=== PATIENT | male | born 1965 | race Caucasian/White ===

== ENCOUNTER → 2016-07-12 | Outpatient (CLI) | payer BC ==
[2016-02-22 13:50] VITALS: BP 123/83
[~2016-07-12] MED LIST: HYDR-2666 PO
--- NOTE | 2016-07-12 15:37 | KCIC ---
PROCEDURE Lumbar spine radiographs HISTORY L1 compression fracture, fall on 07/11/2016 COMPARISON None available FINDINGS Two views of the lumbar spine are submitted. There is superior L1 compression deformity without significant osseous retropulsion. There is mild reverse S-shaped scoliosis of the thoracolumbar spine. Vertebral body AP alignment is adequate. There is facet degenerative change greater inferiorly of the lumbar spine. There has been cholecystectomy. IMPRESSION 1. There is superior compression deformity of what is considered L1 of uncertain chronicity. Correlation with MRI could be beneficial to assess for marrow edema. 2. There is mild reverse S-shaped scoliosis of the thoracolumbar spine. Electronically signed by: Juvencio Block MD (Jul 12, 2016 15:35:29)
== END | disposition home or self-care (01) ==
LOC: KCIC 14:42
PROVIDERS: ATTEND Neurological Surgery
DX: S32.000A Wedge compression fracture of unspecified lumbar vertebra, initial encounter for closed fracture (principal)
CPT/HCPCS: 72100

== ENCOUNTER → 2016-07-12 | Outpatient (CLI) | payer BC ==
[2016-02-22 13:50] VITALS: BP 123/83
--- NOTE | 2016-07-12 15:35 | KCIC ---
PROCEDURE MR of the left shoulder HISTORY Left shoulder pain. Injury June 14. Two previous surgeries. COMPARISON None TECHNIQUE Standard multiplanar sequences. 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 No evidence of a rotator cuff tear. No significant subdeltoid bursal effusion. Mild rotator cuff muscle atrophy. No significant joint effusion. There are apparent suture anchors at the anterosuperior glenoid. No evidence of labral detachment or tear. No advanced osteoarthritis. Biceps tendon poorly seen, particularly proximally. No bone lesion or acute fracture. No evidence of acute soft tissue injury. IMPRESSION 1. Rotator cuff tendinosis without evidence of a tear. 2. Postsurgical changes at the anterosuperior glenoid. No evidence of labral detachment. 3. Poorly visualized biceps tendon. Electronically signed by: Rome Washington MD (Jul 12, 2016 15:34:51)
== END | disposition home or self-care (01) ==
LOC: KCIC MRI 14:39
PROVIDERS: ATTEND Family Medicine
DX: M75.102 Unspecified rotator cuff tear or rupture of left shoulder, not specified as traumatic (principal)
CPT/HCPCS: 73221

== ENCOUNTER 2016-08-11 14:47 | Inpatient (IN) | payer BC ==
[~2016-08-11] VITALS: Ht 177.8 cm; Wt 94.0 kg
--- NOTE | 2016-08-11 15:02 | PHYS DOC ---
Past Medical History Past Medical History: Diabetes-Type II, Other Additional Past Medical Histor: Hx of head injury 2012, back pain, frequent falls Past Surgical History: Cholecystectomy Additional Past Surgical Histo: ACL, Rotator cuff, back Alcohol Use: None Drug Use: None Adult General Chief Complaint Chief Complaint: CHEST PAIN HPI HPI Patient is a 50 year old male presenting to the emergency department for evaluation of chest pain that started approximately 45 minutes prior to arrival while at rest. He said that he had no prior exertion. He says the pain is heavy and pressure on the left chest and radiates toward the right chest and left arm and associated with shortness of breath but no nausea vomiting or diaphoresis. He says that it feels quite heavy on his chest and he has not had symptoms like this before in the past. Patient denies any diaphoresis nausea or vomiting. Patient says that he has had a heart catheterization before in the past but that was probably 20 years ago. Patient looks uncomfortable but is in no obvious distress. Review of Systems Review of Systems Constitutional: Denies fever or chills [] Eyes: Denies change in visual acuity, redness, or eye pain [] HENT: Denies nasal congestion or sore throat [] Respiratory: Denies cough. + shortness of breath [] Cardiovascular: + CP GI: Denies abdominal pain, nausea, vomiting, bloody stools or diarrhea [] : Denies dysuria or hematuria [] Musculoskeletal: Denies back pain or joint pain [] Integument: Denies rash or skin lesions [] Neurologic: Denies headache, focal weakness or sensory changes [] Current Medications Current Medications Current Medications Medications (Trade) Dose Ordered Sig/[facility] Start Time Stop Time Status Last Admin Dose Admin Albuterol/ Ipratropium 3 ml 3 ml 1X ONCE 08/11/16 15:30 08/11/16 15:32 DC 08/11/16 15:48 3 ML Aspirin (Amy Aspirin) 325 mg STK-MED ONCE 08/11/16 15:13 08/11/16 15:14 DC Aspirin (Ecotrin) 325 mg 1X ONCE 08/11/16 15:15 08/11/16 15:16 DC 08/11/16 15:26 325 MG Enoxaparin Sodium (Lovenox 100mg Syringe) 95 mg 1X ONCE 08/11/16 15:30 08/11/16 15:31 DC 08/11/16 15:35 95 MG Insulin Human Regular (Novolin R Vial) 10 unit 1X ONCE 08/11/16 16:00 08/11/16 16:01 Morphine Sulfate 5 mg 1X ONCE 08/11/16 15:15 08/11/16 15:16 DC 08/11/16 15:35 5 MG Nitroglycerin (Nitrostat) 0.4 mg PRN Q5MIN PRN 08/11/16 15:15 08/11/16 15:30 0.4 MG Ondansetron HCl (Zofran) 4 mg 1X ONCE 08/11/16 15:15 08/11/16 15:16 DC 08/11/16 15:17 4 MG Sodium Chloride (Iv Sodium Chloride 0.9% 1000ml Bag) 1,000 ml @ 0 mls/hr 1X ONCE 08/11/16 16:00 08/11/16 16:01 Allergies Allergies Allergies Coded Allergies Type Severity Reaction Last Updated Verified Penicillins Allergy Intermediate 12/01/15 Yes doxycycline Allergy Intermediate Rash 08/11/16 Yes Physical Exam Physical Exam Constitutional: Well developed, well nourished, no acute distress, non-toxic appearance. [] HENT: Normocephalic, atraumatic, bilateral external ears normal, oropharynx moist, no oral exudates, nose normal. [] Eyes: PERRLA, EOMI, conjunctiva normal, no discharge. [] Neck: Normal range of motion, no tenderness, supple, no stridor. [] Cardiovascular:Heart rate regular rhythm, no murmur [] Lungs & Thorax: Bilateral breath sounds clear to auscultation [] Abdomen: Bowel sounds normal, soft, no tenderness, no masses, no pulsatile masses. [] Skin: Warm, dry, no erythema, no rash. [] Back: No tenderness, no CVA tenderness. [] Extremities: No tenderness, no cyanosis, no clubbing, ROM intact, no edema. [] Neurologic: Alert and oriented X 3, normal motor function, normal sensory function, no focal deficits noted. [] Current Patient Data Vital Signs Vital Signs Date Time Temp Pulse Resp B/P Pulse Ox O2 Delivery O2 Flow Rate FiO2 08/11/16 15:48 Nasal Cannula 3.0 08/11/16 15:35 20 91 08/11/16 15:30 104 119/73 08/11/16 14:53 98.4 98.4 Lab Values Laboratory Tests Test 08/11/16 14:50 White Blood Count 7.3x10^3/uL (4.0-11.0) Red Blood Count 5.59x10^6/uL (4.30-5.70) Hemoglobin 15.7g/dL (13.0-17.5) Hematocrit 46.9% (39.0-53.0) Mean Corpuscular Volume 84fL (79-100) Mean Corpuscular Hemoglobin 28pg (25-35) Mean Corpuscular Hemoglobin Concent 33g/dL (31-37) Red Cell Distribution Width 14.0% (11.5-14.5) Platelet Count 181x10^3/uL (140-400) Neutrophils (%) (Auto) 60% (31-73) Lymphocytes (%) (Auto) 29% (24-48) Monocytes (%) (Auto) 7% (0-9) Eosinophils (%) (Auto) 3% (0-3) Basophils (%) (Auto) 1% (0-3) Neutrophils # (Auto) 4.4x10^3uL (1.8-7.7) Lymphocytes # (Auto) 2.1x10^3/uL (1.0-4.8) Monocytes # (Auto) 0.5x10^3/uL (0.0-1.1) Eosinophils # (Auto) 0.2x10^3/uL (0.0-0.7) Basophils # (Auto) 0.0x10^3/uL (0.0-0.2) Prothrombin Time 11.9SEC (11.7-14.0) Prothrombin Time INR 0.9 (0.8-1.1) PTT 26SEC (24-38) D-Dimer (Leticia) 0.29ug/mlFEU (0.00-0.50) Sodium Level 135mmol/L (136-145) L Potassium Level 4.0mmol/L (3.5-5.1) Chloride Level 101mmol/L (98-107) Carbon Dioxide Level 26mmol/L (21-32) Anion Gap 8 (6-14) Blood Urea Nitrogen 21mg/dL (8-26) Creatinine 1.2mg/dL (0.7-1.3) Estimated GFR (Cockcroft-Gault) 64.4 BUN/Creatinine Ratio 18 (6-20) Glucose Level 451mg/dL (70-99) H Calcium Level 9.3mg/dL (8.5-10.1) Total Bilirubin 0.4mg/dL (0.2-1.0) Aspartate Amino Transferase (AST) 14U/L (15-37) L Alanine Aminotransferase (ALT) 29U/L (16-63) Alkaline Phosphatase 93U/L (46-116) Troponin I Quantitative < 0.017ng/mL (0.000-0.055) HM-Hwb-L-Type Natriuretic Peptide 11pg/mL (0-124) Total Protein 7.4g/dL (6.4-8.2) Albumin 3.5g/dL (3.4-5.0) Albumin/Globulin Ratio 0.9 (1.0-1.7) L Lipase 254U/L (73-393) Ethyl Alcohol Level < 10mg/dL (0-10) Laboratory Tests 08/11/16 14:50 Laboratory Tests 08/11/16 14:50 EKG EKG Normal sinus rhythm at 97 beats per minutes with normal axis no deviation no obvious ST elevation or depression with flattened T waves in leads 3 and aVF and V4 through V6. Radiology/Procedures Radiology/Procedures Portable AP upright view CXR: Clinical indications: Chest pain today. Comparison: November 19, 2010 Findings: Old granulomatous disease is seen. No acute lung infiltrate or pleural effusion or pulmonary edema or lung mass or pneumothorax is seen. The heart size is enlarged but stable. The pulmonary vasculature, mediastinum and both elysia are unremarkable. T Impression: No acute radiographic abnormality is seen. DICTATED and SIGNED BY: NATHALY BEJARANO MD DATE: 08/11/16 1524 Course & Med Decision Making Course & Med Decision Making Patient with tachycardia and hypoxia at 90%. Patient given aspirin breathing treatment and oxygen subcutaneous Lovenox shortly after arrival. Patient's d- dimer is negative and he has a moderate wells score so workup for PE will stop there for now. EKG shows nonspecific changes and his troponin is negative. Pain did not improve much with nitroglycerin however morphine almost took his pain away completely. Patient feels that his breathing improved somewhat with the DuoNeb. Given patient has abnormal vital signs chest pain and no recent cardiac risk stratification he'll be admitted to the hospital for further observation and treatment. Patient accepted by Dr. Morales. Of note patient was requesting to have Dr. Seymour as the consulting ammonia technician and did not want Dr. Patel consulted. Dragon Disclaimer Dragon Disclaimer This electronic medical record was generated, in whole or in part, using a voice recognition dictation system. Departure Departure Impression: Primary Impression: Chest pain at rest Additional Impressions: Tachycardia Hypoxia Disposition: ADMITTED INPATIENT Admitting Physician: Shantanu Morales Condition: STABLE Referrals: MIRANDA MCGREGOR (PCP) Problem Qualifiers PAULY DIAZ DO Aug 11, 2016 15:02
[2016-08-11] MEDS ORDERED: ASPIRIN 325 MG TABLET ONE (15:13)
[2016-08-11] MEDS ORDERED: MORPHINE SULFATE 10 MG/ML VIAL. IV ONE (15:15)
[2016-08-11] MEDS ORDERED: ASPIRIN ENTERIC COATED 325 MG TABLET.DR. PO ONE (15:15)
[2016-08-11] MEDS ORDERED: ONDANSETRON PF 4 MG/2 ML VIAL. IV ONE (15:15)
[2016-08-11] MEDS: NITROGLYCERIN SUBLINGUAL 0.4 MG BOTTLE OF 25. SL PRN ×3 (15:16→15:30)
[2016-08-11 15:17] LABS: BASO % 1 % (0-3); EOS % 3 % (0-3); HEMATOCRIT 46.9 % (39.0-53.0); HEMOGLOBIN 15.7 g/dL (13.0-17.5); LYMPH # 2.1 x10^3/uL (1.0-4.8); LYMPH % 29 % (24-48); MEAN CORPUSCULAR HEMOGLOBIN 28 pg (25-35); MEAN CORPUSCULAR HGB CONC 33 g/dL (31-37); MEAN CORPUSCULAR VOLUME 84 fL (79-100); MONO % 7 % (0-9); NEUT % 60 % (31-73); PLATELET COUNT 181 x10^3/uL (140-400); RED BLOOD COUNT 5.59 x10^6/uL (4.30-5.70); WHITE BLOOD COUNT 7.3 x10^3/uL (4.0-11.0)
[2016-08-11 15:27] LABS: INR 0.9 (0.8-1.1); PROTHROMBIN TIME PATIENT 11.9 SEC (11.7-14.0)
--- NOTE | 2016-08-11 15:29 | RAD ---
Portable AP upright view CXR: Clinical indications: Chest pain today. Comparison: November 19, 2010 Findings: Old granulomatous disease is seen. No acute lung infiltrate or pleural effusion or pulmonary edema or lung mass or pneumothorax is seen. The heart size is enlarged but stable. The pulmonary vasculature, mediastinum and both elysia are unremarkable. T Impression: No acute radiographic abnormality is seen.
[2016-08-11] MEDS ORDERED: IPRATRPIUM/ALBUTEROL 0.5/2.5MG 3 ML NEBU. NEB ONE (15:30)
[2016-08-11 15:31] LABS: CALCIUM 9.3 mg/dL (8.5-10.1); CREATININE 1.2 mg/dL (0.7-1.3); GFR 64.4
[2016-08-11 15:39] LABS: ALBUMIN 3.5 g/dL (3.4-5.0); ALBUMIN/GLOBULIN RATIO 0.9 (1.0-1.7); TOTAL BILIRUBIN 0.4 mg/dL (0.2-1.0); TOTAL PROTEIN 7.4 g/dL (6.4-8.2)
[2016-08-11 15:58] LABS: BARBITURATES NEG (NEG); BENZODIAZEPINES NEG (NEG); CANNABINOIDS NEG (NEG); COCAINE NEG (NEG); METHADONE NEG (NEG); OPIATES NEG (NEG); PHENCYCLIDINE NEG (NEG)
[2016-08-11] MEDS ORDERED: IV NORMAL SALINE 1000ML BAG 1,000 ML IV ONE ×2 (16:00→16:15)
[2016-08-11] MEDS ORDERED: INSULIN REGULAR 100 UNIT/ML 10ML VIAL. IV ONE (16:00)
[2016-08-11] MEDS ORDERED: ONDANSETRON PF 4 MG/2 ML VIAL. IV PRN ×2 (16:15→17:45)
[2016-08-11] MEDS: fentaNYL PF VIAL 100 MCG/2 ML VIAL IV PRN ×3 (16:23→22:48)
[2016-08-11 16:29] LABS: BILIRUBIN,URINE NEGATIVE (NEG); GLUCOSE,URINE >=1000 mg/dL (NEG); NITRITE,URINE NEGATIVE (NEG); PH,URINE 5.5; PROTEIN,URINE NEGATIVE (NEG-TRACE); UROBILINOGEN,URINE 0.2 mg/dL (0.2 mg/dL)
--- NOTE | 2016-08-11 16:36 | EKG ---
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
--- NOTE | 2016-08-11 16:39 | ACF ---
Admission Forms Criteria CHEST PAIN Clinical Indications for Admission to Inpatient Care (Place 'X' for any and all applicable criteria): Admission is indicated for chest pain and ANY ONE of the following(1)(2)(3)(4)(5 ): [ ]I. Angina with acute coronary syndrome (Also use Myocardial Infarction or Angina guideline) [ ]II. Hemodynamic instability [X]III. Angina needing acute intervention as indicated by ALL of the following( 11)(12): [X]a) Unstable angina is present as indicated by angina that is ANY ONE of the following: [X]i) New onset [ ]ii) Nocturnal [ ]iii) Prolonged at rest [ ]iv) Progressive [X]b) Angina warrants acute intervention as indicated by ANY ONE of the following: [ ]i) Recurrent angina (e.g, not responding as previously to treatment) [X]ii) Angina at rest or with low-level activities despite initial medical therapy [ ]iii) New or presumably new ST-segment depression on ECG [ ]iv) Signs or symptoms of heart failure (eg, dyspnea, pulmonary edema) [ ]v) New or worsening mitral regurgitation [ ]vi) Hemodynamic instability [ ]vii) Dangerous arrhythmia (eg, sustained ventricular tachycardia) [ ]viii) History of percutaneous coronary intervention within 6 months [ ]ix) History of coronary artery bypass graft surgery [ ]x) JOSE risk score of 2 or greater[A] [X]xi) History of Diabetes(14) [ ]xii) High-risk cardiac ischemia findings on noninvasive testing (e.g, echocardiogram, treadmill testing, nuclear scan) [ ]xiii) Chronic renal insufficiency (ie, estimated GFR less than 60 mL/min/1.732m) [ ]xiv) Left ventricular ejection fraction less than 40% [ ]IV. Evidence of NM (eg, cardiac biomarkers positive, ST-segment elevation on ECG) also use Myocardial Infarction Criteria Form. [ ]V. Pulmonary edema [ ]. Respiratory distress [ ]VII. Chest pain indicative of serious diagnosis other than coronary artery disease (eg, aortic dissection) [ ]VIII. Contraindications and/or Inappropriate clinical situations for Observational Care in patients with Chest Pain, when ANY ONE of the following is required: [ ]a) Patient with risk factor for pulmonary embolism, acute coronary syndrome and myocardial infarction (18) [ ]b) Patient with Pulmonary embolism require an average LOS of 4.3 days, therefore emergency department observation management is inappropriate 18,23 [ ]c) Painful condition/s in the elderly, have the highest rate of recidivism after emergency department observation management (10.8%) 20,21,22 [ ]d) Elevated cardiac biomarker requires intensive and exhaustive care (19) [ ]IX. General contraindications and/or Inappropriate clinical situations for Observational Care in patients with Chest Pain, when ANY ONE of the following is required: [ ]a) Prediction of prolongation of LOS based on ANY ONE of the following may be considered as a contraindication for observational care 2, 3, 4, 5, 6, 7, 8, 9, 10, 11 [ ]i) Age > 65 yrs. [ ]ii) Patient arriving by ambulance [ ]iii) Patient with high acuity [ ]iv) Patient requiring vital sign monitoring [ ]v) Patient on IV medication [ ]b) Systolic blood pressures 180mmHg 3,12 [ ]c) Patient with altered mental status including delirium and other alteration of consciousness, (3) [ ]d) Patient whose discharge disposition will be to a shelter home or rehabilitation home should not be managed in Emergency Department Observation Unit. CMS rule requires 3 days hospital stay before such placement. 3,13 [ ]e) Patient with failure to thrive due to broad array of etiologies 3,16,17 [ ]f) Inability to ambulate 3,14 Extended stay beyond goal length of stay may be needed for (1)(28): [ ]a) Specific condition diagnosed after evaluation (eg, pulmonary embolism, aortic dissection) [ ]b) Unstable angina [ ]c) Continued suspicion of acute coronary syndrome with inability to complete needed cardiac evaluation (eg, patient clinically unable to undergo stress testing) [ ]d) Myocardial infarction (Contents from ANGINA and CHEST PAIN clinical indications for admission to inpatient care have been integrated in this form) The original [employer] content created by [employer] has been revised. The portions of the content which have been revised are identified through the use of italic text or in bold, and [employer] has neither reviewed nor approved the modified material. All other unmodified content is copyright [employer]. Please see references footnoted in the original [facility] Admission Criteria Met?: Yes DONALD LAI Aug 11, 2016 16:39
[2016-08-11] MEDS ORDERED: IOHEXOL 300 MG/ML 75 ML VIAL IV ONE (16:45)
[2016-08-11 16:50] LABS: BACTERIA,URINE 0 /HPF (0-FEW); RBC,URINE 0 /HPF (0-2); SQUAMOUS EPITHELIAL CELL,UR OCC /LPF; WBC,URINE 0 /HPF (0-4)
--- NOTE | 2016-08-11 17:21 | RAD ---
CTA of the chest with and without contrast Clinical indications: Shortness of air and tachycardia. Hypoxia. Technique: Noncontrast axial localizer was performed. After IV infusion of 75 cc of Omnipaque 300, helical CT scanning of the chest was performed using the CT pulmonary embolism protocol. A coronal MIP reconstruction was generated. PQRS Compliance Statement: One or more of the following individualized dose reduction techniques were utilized for this examination: 1. Automated exposure control 2. Adjustment of the mA and/or kV according to patient size 3. Use of iterative reconstruction technique Comparison: None available. Findings: There are some small pulmonary emboli present within tertiary branches of the right upper lobe and posterior right lower lobe. No pulmonary embolism is evident on the left side. No pulmonary embolism is evident within the main pulmonary trunk or the left main or right main pulmonary arteries. No thoracic aortic dissection or focal aneurysmal dilatation is seen. A large amount of pericardial fat is seen around the heart. Excluding the pericardial fat, the actual heart size is within normal limits. No pericardial effusion is seen. No enlarged thoracic lymphadenopathy is seen. No pleural effusion is seen. There is some atelectasis within both lower lobes. No lung consolidation with air bronchograms is seen. No lung mass is evident. No pneumothorax is seen. The proximal bronchial tree is patent. No adrenal mass is seen. No osteolytic process is seen. IMPRESSION: Small pulmonary emboli are present within tertiary branches of the right lung field. Bilateral lower lobe atelectasis. Note-this critical result was called to the patient's floor nurse, Abida at 5:17 PM on August 11, 2016.
[2016-08-11 17:22] VITALS: BP 116/73
--- NOTE | 2016-08-11 17:43 | PDOC1 ---
History and Physical Current Problem List Problem List Problems Medical Problems: (1) Chest pain at rest Status: Acute (2) Hypoxia Status: Acute (3) Tachycardia Status: Acute Current Medications Current Medications Current Medications Medications (Trade) Dose Ordered Sig/Gadiel Start Time Stop Time Status Last Admin Dose Admin Albuterol/ Ipratropium (Duoneb) 3 ml 1X ONCE 08/11/16 15:30 08/11/16 15:32 DC 08/11/16 15:48 3 ML Aspirin (Amy Aspirin) 325 mg STK-MED ONCE 08/11/16 15:13 08/11/16 15:14 DC Aspirin (Ecotrin) 325 mg 1X ONCE 08/11/16 15:15 08/11/16 15:16 DC 08/11/16 15:26 325 MG Enoxaparin Sodium (Lovenox 100mg Syringe) 100 mg Q12HR 08/12/16 09:00 Enoxaparin Sodium (Lovenox 30mg Syringe) 10 mg 1X ONCE 08/11/16 17:45 08/11/16 17:46 Fentanyl Citrate 50 mcg 50 mcg PRN Q2HR PRN 08/11/16 16:15 08/12/16 16:14 08/11/16 16:23 50 MCG Insulin Human Regular (Novolin R Vial) 10 unit 1X ONCE 08/11/16 16:00 08/11/16 16:01 DC 08/11/16 16:22 10 UNIT Iohexol (Omnipaque 300 Mg/ml) 75 ml 1X ONCE 08/11/16 16:45 08/11/16 16:46 DC 08/11/16 16:56 75 ML Morphine Sulfate 5 mg 1X ONCE 08/11/16 15:15 08/11/16 15:16 DC 08/11/16 15:35 5 MG Nitroglycerin (Nitrostat) 0.4 mg PRN Q5MIN PRN 08/11/16 15:15 08/11/16 15:30 0.4 MG Ondansetron HCl (Zofran) 4 mg PRN Q8HRS PRN 08/11/16 16:15 08/12/16 16:14 Sodium Chloride (Iv Sodium Chloride 0.9% 1000ml Bag) 1,000 ml @ 1,000 mls/hr 1X ONCE 08/11/16 16:15 08/11/16 17:14 DC 08/11/16 16:23 1,000 MLS/HR Allergies Allergies Allergies Coded Allergies Type Severity Reaction Last Updated Verified Penicillins Allergy Intermediate 12/01/15 Yes doxycycline Allergy Intermediate Rash 08/11/16 Yes ROS Review of System CONSTITUTIONAL: No fever or chills EYES: No recent changes SKIN: No rash or itching CARDIOVASCULAR: chest pain, NO syncope, palpitations, or edema RESPIRATORY: SOB GASTROINTESTINAL: No nausea, vomiting or abdominal pain NEUROLOGICAL: No headaches or weakness ENDOCRINE: No cold or heat intolerance GENITOURINARY: No urgency or frequency of urination MUSCULOSKELETAL: No back pain or joint pain LYMPHATICS: No enlarged lymph nodes PSYCHIATRIC: No anxiety or depression Physical Exam Physical Exam GEN.: No apparent distress. Alert and oriented. HEENT: Head is normocephalic, atraumatic NECK: Supple. NO JVD LUNGS: Clear to auscultation. normal airflow HEART: TACHYCARDIA, S1, S2 present. Peripheral pulses intact ABDOMEN: Soft, nontender. Positive bowel sounds. EXTREMITIES: Without any cyanosis. NEUROLOGIC: Normal speech, normal tone PSYCHIATRIC: Normal affect, normal mood. SKIN: dry. Vitals Vitals Vital Signs Date Time Temp Pulse Resp B/P Pulse Ox O2 Delivery O2 Flow Rate FiO2 08/11/16 17:22 97.8 99 18 116/73 93 Nasal Cannula 97.8 08/11/16 16:29 4 Labs Labs Laboratory Tests Test 08/11/16 14:50 08/11/16 15:41 08/11/16 15:49 08/11/16 17:28 White Blood Count 7.3x10^3/uL (4.0-11.0) Red Blood Count 5.59x10^6/uL (4.30-5.70) Hemoglobin 15.7g/dL (13.0-17.5) Hematocrit 46.9% (39.0-53.0) Mean Corpuscular Volume 84fL (79-100) Mean Corpuscular Hemoglobin 28pg (25-35) Mean Corpuscular Hemoglobin Concent 33g/dL (31-37) Red Cell Distribution Width 14.0% (11.5-14.5) Platelet Count 181x10^3/uL (140-400) Neutrophils (%) (Auto) 60% (31-73) Lymphocytes (%) (Auto) 29% (24-48) Monocytes (%) (Auto) 7% (0-9) Eosinophils (%) (Auto) 3% (0-3) Basophils (%) (Auto) 1% (0-3) Neutrophils # (Auto) 4.4x10^3uL (1.8-7.7) Lymphocytes # (Auto) 2.1x10^3/uL (1.0-4.8) Monocytes # (Auto) 0.5x10^3/uL (0.0-1.1) Eosinophils # (Auto) 0.2x10^3/uL (0.0-0.7) Basophils # (Auto) 0.0x10^3/uL (0.0-0.2) Prothrombin Time 11.9SEC (11.7-14.0) Prothromb Time International Ratio 0.9 (0.8-1.1) Activated Partial Thromboplast Time 26SEC (24-38) D-Dimer (Leticia) 0.29ug/mlFEU (0.00-0.50) Sodium Level 135mmol/L (136-145) Potassium Level 4.0mmol/L (3.5-5.1) Chloride Level 101mmol/L (98-107) Carbon Dioxide Level 26mmol/L (21-32) Anion Gap 8 (6-14) Blood Urea Nitrogen 21mg/dL (8-26) Creatinine 1.2mg/dL (0.7-1.3) Estimated GFR (Cockcroft-Gault) 64.4 BUN/Creatinine Ratio 18 (6-20) Glucose Level 451mg/dL (70-99) Calcium Level 9.3mg/dL (8.5-10.1) Total Bilirubin 0.4mg/dL (0.2-1.0) Aspartate Amino Transf (AST/SGOT) 14U/L (15-37) Alanine Aminotransferase (ALT/SGPT) 29U/L (16-63) Alkaline Phosphatase 93U/L (46-116) Troponin I Quantitative < 0.017ng/mL (0.000-0.055) RM-Hei-Z-Type Natriuretic Peptide 11pg/mL (0-124) Total Protein 7.4g/dL (6.4-8.2) Albumin 3.5g/dL (3.4-5.0) Albumin/Globulin Ratio 0.9 (1.0-1.7) Lipase 254U/L (73-393) Ethyl Alcohol Level < 10mg/dL (0-10) Urine Opiates Screen Neg (NEG) Urine Methadone Screen Neg (NEG) Urine Barbiturates Neg (NEG) Urine Phencyclidine Screen Neg (NEG) Urine Amphetamine/Methamphetamine Neg (NEG) Urine Benzodiazepines Screen Neg (NEG) Urine Cocaine Screen Neg (NEG) Urine Cannabinoids Screen Neg (NEG) Urine Ethyl Alcohol Neg (NEG) Urine Collection Type Unknown Urine Color Yellow Urine Clarity Clear Urine pH 5.5 Urine Specific Winston >=1.030 Urine Protein Negativemg/dL (NEG-TRACE) Urine Glucose (UA) >=1000mg/dL (NEG) Urine Ketones (Stick) Negativemg/dL (NEG) Urine Blood Negative (NEG) Urine Nitrite Negative (NEG) Urine Bilirubin Negative (NEG) Urine Urobilinogen Dipstick 0.2mg/dL (0.2 mg/dL) Urine Leukocyte Esterase Negative (NEG) Urine RBC 0/HPF (0-2) Urine WBC 0/HPF (0-4) Urine Squamous Epithelial Cells Occ/LPF Urine Bacteria 0/HPF (0-FEW) Glucose (Fingerstick) 271mg/dL (70-99) Laboratory Tests Test 08/11/16 14:50 08/11/16 15:41 08/11/16 15:49 08/11/16 17:28 White Blood Count 7.3x10^3/uL (4.0-11.0) Red Blood Count 5.59x10^6/uL (4.30-5.70) Hemoglobin 15.7g/dL (13.0-17.5) Hematocrit 46.9% (39.0-53.0) Mean Corpuscular Volume 84fL (79-100) Mean Corpuscular Hemoglobin 28pg (25-35) Mean Corpuscular Hemoglobin Concent 33g/dL (31-37) Red Cell Distribution Width 14.0% (11.5-14.5) Platelet Count 181x10^3/uL (140-400) Neutrophils (%) (Auto) 60% (31-73) Lymphocytes (%) (Auto) 29% (24-48) Monocytes (%) (Auto) 7% (0-9) Eosinophils (%) (Auto) 3% (0-3) Basophils (%) (Auto) 1% (0-3) Neutrophils # (Auto) 4.4x10^3uL (1.8-7.7) Lymphocytes # (Auto) 2.1x10^3/uL (1.0-4.8) Monocytes # (Auto) 0.5x10^3/uL (0.0-1.1) Eosinophils # (Auto) 0.2x10^3/uL (0.0-0.7) Basophils # (Auto) 0.0x10^3/uL (0.0-0.2) Prothrombin Time 11.9SEC (11.7-14.0) Prothromb Time International Ratio 0.9 (0.8-1.1) Activated Partial Thromboplast Time 26SEC (24-38) D-Dimer (Leticia) 0.29ug/mlFEU (0.00-0.50) Sodium Level 135mmol/L (136-145) Potassium Level 4.0mmol/L (3.5-5.1) Chloride Level 101mmol/L (98-107) Carbon Dioxide Level 26mmol/L (21-32) Anion Gap 8 (6-14) Blood Urea Nitrogen 21mg/dL (8-26) Creatinine 1.2mg/dL (0.7-1.3) Estimated GFR (Cockcroft-Gault) 64.4 BUN/Creatinine Ratio 18 (6-20) Glucose Level 451mg/dL (70-99) Calcium Level 9.3mg/dL (8.5-10.1) Total Bilirubin 0.4mg/dL (0.2-1.0) Aspartate Amino Transf (AST/SGOT) 14U/L (15-37) Alanine Aminotransferase (ALT/SGPT) 29U/L (16-63) Alkaline Phosphatase 93U/L (46-116) Troponin I Quantitative < 0.017ng/mL (0.000-0.055) QY-Otk-G-Type Natriuretic Peptide 11pg/mL (0-124) Total Protein 7.4g/dL (6.4-8.2) Albumin 3.5g/dL (3.4-5.0) Albumin/Globulin Ratio 0.9 (1.0-1.7) Lipase 254U/L (73-393) Ethyl Alcohol Level < 10mg/dL (0-10) Urine Opiates Screen Neg (NEG) Urine Methadone Screen Neg (NEG) Urine Barbiturates Neg (NEG) Urine Phencyclidine Screen Neg (NEG) Urine Amphetamine/Methamphetamine Neg (NEG) Urine Benzodiazepines Screen Neg (NEG) Urine Cocaine Screen Neg (NEG) Urine Cannabinoids Screen Neg (NEG) Urine Ethyl Alcohol Neg (NEG) Urine Collection Type Unknown Urine Color Yellow Urine Clarity Clear Urine pH 5.5 Urine Specific Winston >=1.030 Urine Protein Negativemg/dL (NEG-TRACE) Urine Glucose (UA) >=1000mg/dL (NEG) Urine Ketones (Stick) Negativemg/dL (NEG) Urine Blood Negative (NEG) Urine Nitrite Negative (NEG) Urine Bilirubin Negative (NEG) Urine Urobilinogen Dipstick 0.2mg/dL (0.2 mg/dL) Urine Leukocyte Esterase Negative (NEG) Urine RBC 0/HPF (0-2) Urine WBC 0/HPF (0-4) Urine Squamous Epithelial Cells Occ/LPF Urine Bacteria 0/HPF (0-FEW) Glucose (Fingerstick) 271mg/dL (70-99) VTE Prophylaxis Ordered VTE Prophylaxis Devices: Yes VTE Pharmacological Prophylaxi: Yes TYLOR DE JESUS MD Aug 11, 2016 17:43
[2016-08-11] MEDS ORDERED: hydrALAZINE 20 MG/ML VIAL. IVP PRN (17:45)
[2016-08-11] MEDS ORDERED: DEXTROSE 50% 25 GM / 50ML DISP.SYRIN. IV PRN (17:45)
[2016-08-11] MEDS ORDERED: ACETAMINOPHEN 325 MG TABLET. PO PRN (17:45)
[2016-08-11] MEDS ORDERED: ENOXAPARIN 30 MG/0.3 ML SYRINGE. SQ ONE (17:45)
[2016-08-11] MEDS ORDERED: ALBUTEROL SULFATE 2.5 MG/3 ML NEBU. NEB PRN (17:45)
[2016-08-11] MEDS ORDERED: INSULIN ASPART 300 UNITS/3 ML INSULN.PEN SQ ONE (18:15)
[2016-08-11 18:58] VITALS: BP 103/64
[2016-08-11] MEDS ORDERED: LIRA0.6P SQ (20:38)
[2016-08-11] MEDS ORDERED: INSU100V8 SQ (20:38)
[2016-08-11] MEDS ORDERED: ATORVASTATIN CA80 MG PO (20:38)
[2016-08-11] MEDS ORDERED: ESCI20TA PO (20:38)
[2016-08-11] MEDS ORDERED: FENO160T PO (20:38)
[2016-08-11] MEDS ORDERED: CANA100T PO (20:38)
[2016-08-11] MEDS: HYDROCODONE/APAP 5/325MG TABLET. PO PRN (21:08)
--- NOTE | 2016-08-11 21:54 | HP ---
ADMIT DATE: 08/11/2016 CHIEF COMPLAINT: Chest pain. HISTORY OF PRESENT ILLNESS: A 50-year-old male patient presented to the ER with complaints of shortness of breath and chest pain. Symptoms started earlier this morning; however, the chest pain got worse by this evening and with increased tiredness. On arrival, his initial workup was negative; however, the patient continued to have shortness of breath. CTA of the chest showed some PE. The patient denies any diaphoresis, nausea, vomiting, or palpitations. 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 His mobility is restricted. PAST MEDICAL HISTORY: Type 2 diabetes mellitus, head injury in 2011, back pain, sequent falls, cholecystectomy, ACL, and rotator cuff repair. PERSONAL HISTORY: Disabled. No smoking. No alcohol. No drug abuse. FAMILY HISTORY: No blood clots. REVIEW OF SYSTEMS AND PHYSICAL EXAMINATION: Please see my electronic H and P. ALLERGIES: PENICILLINS, DOXYCYCLINE. LABORATORY REVIEW: CBC within normal limits. Chemistry within normal limits. Blood sugars 451. Troponin 0.017. Toxicology negative. Coagulation panel within normal limits. Urine blood glucose more than 1000, nitrites negative, and bacteria zero. IMAGINING STUDIES: 1. CT of the chest showed bilateral lower lobe atelectasis with small pulmonary embolism in the tertiary branches of the right lung field. 2. Chest x-ray: No acute process. ASSESSMENT: 1. Chest tenderness on admission, due to right-sided pulmonary embolism. 2. Type 2 diabetes mellitus with hyperglycemia. 3. Chronic back pain. 4. Physical debility. PLAN: 1. The patient has been started on Lovenox 1 mg per kg body weight twice a day. Pulmonology and Cardiology has been consulted. 2. We will get 2 sets of troponins. 3. Initial EKG showed sinus rhythm with tachycardia. No acute ST-T wave changes, but T-waves in lead 3 and AVF, V4-V3. 4. Sliding scale insulin with home dose of NovoLog/Levemir. 5. Plan explained to the patient and his , all questions answered. 6. Warfarin from today 7. Echocardiogram ordered. 8. Prognosis guarded. TYLOR DE JESUS MD DR: ALEXSANDER/kamini JOB#: [id number] / [id number] [email or web address]
[2016-08-11] MEDS ORDERED: INSULIN DETEMIR 300 UNITS/3 ML INSULN.PEN. SQ SCH (22:00)
[2016-08-11] MEDS: VICTOZA SQ SCH (22:36)
[2016-08-11] MEDS ORDERED: WARFARIN 7.5 MG TABLET. PO ONE (23:00)
[2016-08-11 23:39] VITALS: BP 116/81
[2016-08-12 03:33] VITALS: BP 92/64
[2016-08-12 05:09] LABS: BASO # 0.1 x10^3/uL (0.0-0.2); BASO % 1 % (0-3); EOS % 4 % (0-3); HEMATOCRIT 43.4 % (39.0-53.0); HEMOGLOBIN 14.6 g/dL (13.0-17.5); LYMPH # 3.1 x10^3/uL (1.0-4.8); LYMPH % 43 % (24-48); MEAN CORPUSCULAR HEMOGLOBIN 29 pg (25-35); MEAN CORPUSCULAR HGB CONC 34 g/dL (31-37); MEAN CORPUSCULAR VOLUME 85 fL (79-100); MONO % 6 % (0-9); NEUT % 46 % (31-73); PLATELET COUNT 168 x10^3/uL (140-400); RED BLOOD COUNT 5.09 x10^6/uL (4.30-5.70); WHITE BLOOD COUNT 7.1 x10^3/uL (4.0-11.0)
[2016-08-12 05:22] LABS: PROTHROMBIN TIME PATIENT 12.2 SEC (11.7-14.0)
[2016-08-12 05:45] LABS: CALCIUM 8.1 mg/dL (8.5-10.1); CREATININE 0.9 mg/dL (0.7-1.3); GFR 89.7; POTASSIUM 3.6 mmol/L (3.5-5.1)
[2016-08-12 07:00] VITALS: BP 120/96
[2016-08-12] MEDS: INSULIN ASPART 300 UNITS/3 ML INSULN.PEN SQ SCH ×3 (08:00→17:00)
--- NOTE | 2016-08-12 08:43 | RAD ---
Bilateral lower extremity venous ultrasound, 08/11/2016: History: Pulmonary emboli Duplex evaluation of the deep veins in the lower extremities was performed including grayscale, color-flow and spectral Doppler analysis. The femoral and popliteal veins demonstrate normal compressibility and normal responses to distal augmentation maneuvers. Color imaging of those vessels shows no evidence of intraluminal clot. The visualized deep veins in both calves are patent. IMPRESSION: There is no sonographic evidence of deep vein thrombosis in either lower extremity.
[2016-08-12] MEDS: HYDROCODONE/APAP 5/325MG TABLET. PO PRN ×2 (08:47→19:20)
[2016-08-12] MEDS: FENOFIBRATE,MICRONIZED 134 MG CAPSULE PO SCH (08:47)
[2016-08-12] MEDS: ESCITALOPRAM 10 MG TABLET. PO SCH (08:48)
[2016-08-12] MEDS: NON FORMULARY ITEM (Canagliflozin (Invokana) 100 MG) PO SCH (08:49)
--- NOTE | 2016-08-12 10:47 | PDOC ---
PROGRESS NOTES Chief Complaint Chief Complaint PE Chest pain Type 2 diabetes mellitus Head injury in 2012 Back pain, Falls Cholecystectomy ACLand rotator cuff repair. History of Present Illness History of Present Illness Patient sitting in bed and comfortable. Discussed with . Vital signs stable. Cardiac workup in progress. Vitals Vitals Vital Signs Date Time Temp Pulse Resp B/P Pulse Ox O2 Delivery O2 Flow Rate FiO2 08/12/16 08:47 Room Air 08/12/16 07:00 97.4 81 20 120/96 96 4.0 97.4 Physical Exam General: Alert, Oriented X3 Heart: Regular rate, Normal S1, Normal S2 Lungs: Clear Abdomen: Normal bowel sounds, Soft Extremities: No clubbing, No cyanosis Skin: No rashes, No significant lesion Labs LABS Laboratory Tests Test 08/11/16 14:50 08/11/16 15:41 08/11/16 15:49 08/11/16 17:28 White Blood Count 7.3x10^3/uL (4.0-11.0) Red Blood Count 5.59x10^6/uL (4.30-5.70) Hemoglobin 15.7g/dL (13.0-17.5) Hematocrit 46.9% (39.0-53.0) Mean Corpuscular Volume 84fL (79-100) Mean Corpuscular Hemoglobin 28pg (25-35) Mean Corpuscular Hemoglobin Concent 33g/dL (31-37) Red Cell Distribution Width 14.0% (11.5-14.5) Platelet Count 181x10^3/uL (140-400) Neutrophils (%) (Auto) 60% (31-73) Lymphocytes (%) (Auto) 29% (24-48) Monocytes (%) (Auto) 7% (0-9) Eosinophils (%) (Auto) 3% (0-3) Basophils (%) (Auto) 1% (0-3) Neutrophils # (Auto) 4.4x10^3uL (1.8-7.7) Lymphocytes # (Auto) 2.1x10^3/uL (1.0-4.8) Monocytes # (Auto) 0.5x10^3/uL (0.0-1.1) Eosinophils # (Auto) 0.2x10^3/uL (0.0-0.7) Basophils # (Auto) 0.0x10^3/uL (0.0-0.2) Prothrombin Time 11.9SEC (11.7-14.0) Prothromb Time International Ratio 0.9 (0.8-1.1) Activated Partial Thromboplast Time 26SEC (24-38) D-Dimer (Leticia) 0.29ug/mlFEU (0.00-0.50) Sodium Level 135mmol/L (136-145) Potassium Level 4.0mmol/L (3.5-5.1) Chloride Level 101mmol/L (98-107) Carbon Dioxide Level 26mmol/L (21-32) Anion Gap 8 (6-14) Blood Urea Nitrogen 21mg/dL (8-26) Creatinine 1.2mg/dL (0.7-1.3) Estimated GFR (Cockcroft-Gault) 64.4 BUN/Creatinine Ratio 18 (6-20) Glucose Level 451mg/dL (70-99) Calcium Level 9.3mg/dL (8.5-10.1) Total Bilirubin 0.4mg/dL (0.2-1.0) Aspartate Amino Transf (AST/SGOT) 14U/L (15-37) Alanine Aminotransferase (ALT/SGPT) 29U/L (16-63) Alkaline Phosphatase 93U/L (46-116) Troponin I Quantitative < 0.017ng/mL (0.000-0.055) LL-Toq-R-Type Natriuretic Peptide 11pg/mL (0-124) Total Protein 7.4g/dL (6.4-8.2) Albumin 3.5g/dL (3.4-5.0) Albumin/Globulin Ratio 0.9 (1.0-1.7) Lipase 254U/L (73-393) Ethyl Alcohol Level < 10mg/dL (0-10) Urine Opiates Screen Neg (NEG) Urine Methadone Screen Neg (NEG) Urine Barbiturates Neg (NEG) Urine Phencyclidine Screen Neg (NEG) Urine Amphetamine/Methamphetamine Neg (NEG) Urine Benzodiazepines Screen Neg (NEG) Urine Cocaine Screen Neg (NEG) Urine Cannabinoids Screen Neg (NEG) Urine Ethyl Alcohol Neg (NEG) Urine Collection Type Unknown Urine Color Yellow Urine Clarity Clear Urine pH 5.[address] >=1.030 Urine Protein Negativemg/dL (NEG-TRACE) Urine Glucose (UA) >=1000mg/dL (NEG) Urine Ketones (Stick) Negativemg/dL (NEG) Urine Blood Negative (NEG) Urine Nitrite Negative (NEG) Urine Bilirubin Negative (NEG) Urine Urobilinogen Dipstick 0.2mg/dL (0.2 mg/dL) Urine Leukocyte Esterase Negative (NEG) Urine RBC 0/HPF (0-2) Urine WBC 0/HPF (0-4) Urine Squamous Epithelial Cells Occ/LPF Urine Bacteria 0/HPF (0-FEW) Glucose (Fingerstick) 271mg/dL (70-99) Test 08/11/16 20:57 08/11/16 22:15 08/12/16 03:45 08/12/16 08:25 Glucose (Fingerstick) 223mg/dL (70-99) 187mg/dL (70-99) Troponin I Quantitative < 0.017ng/mL (0.000-0.055) < 0.017ng/mL (0.000-0.055) White Blood Count 7.1x10^3/uL (4.0-11.0) Red Blood Count 5.09x10^6/uL (4.30-5.70) Hemoglobin 14.6g/dL (13.0-17.5) Hematocrit 43.4% (39.0-53.0) Mean Corpuscular Volume 85fL (79-100) Mean Corpuscular Hemoglobin 29pg (25-35) Mean Corpuscular Hemoglobin Concent 34g/dL (31-37) Red Cell Distribution Width 14.0% (11.5-14.5) Platelet Count 168x10^3/uL (140-400) Neutrophils (%) (Auto) 46% (31-73) Lymphocytes (%) (Auto) 43% (24-48) Monocytes (%) (Auto) 6% (0-9) Eosinophils (%) (Auto) 4% (0-3) Basophils (%) (Auto) 1% (0-3) Neutrophils # (Auto) 3.2x10^3uL (1.8-7.7) Lymphocytes # (Auto) 3.1x10^3/uL (1.0-4.8) Monocytes # (Auto) 0.4x10^3/uL (0.0-1.1) Eosinophils # (Auto) 0.3x10^3/uL (0.0-0.7) Basophils # (Auto) 0.1x10^3/uL (0.0-0.2) Prothrombin Time 12.2SEC (11.7-14.0) Prothromb Time International Ratio 1.0 (0.8-1.1) Sodium Level 137mmol/L (136-145) Potassium Level 3.6mmol/L (3.5-5.1) Chloride Level 104mmol/L (98-107) Carbon Dioxide Level 23mmol/L (21-32) Anion Gap 10 (6-14) Blood Urea Nitrogen 19mg/dL (8-26) Creatinine 0.9mg/dL (0.7-1.3) Estimated GFR (Cockcroft-Gault) 89.7 Glucose Level 231mg/dL (70-99) Calcium Level 8.1mg/dL (8.5-10.1) Review of Systems Review of Systems Denies vomiting Denies diarrhea Assessment and Plan Assessmemt and Plan Problems Medical Problems: (1) Chest pain at rest Status: Acute (2) Hypoxia Status: Acute (3) Tachycardia Status: Acute PE Chest pain Type 2 diabetes mellitus Head injury in 2012 Back pain, Falls Cholecystectomy ACL and rotator cuff repair Plan: Continue serial enzymes Continue serial EKGs Cardiac monitoring Consult cardiology Consult pulmonary Continue anticoagulation Problems: Comment Review of Relevant I have reviewed the following items ashwin (where applicable) has been applied. Labs Laboratory Tests Test 08/11/16 14:50 08/11/16 15:41 08/11/16 15:49 08/11/16 17:28 White Blood Count 7.3x10^3/uL (4.0-11.0) Red Blood Count 5.59x10^6/uL (4.30-5.70) Hemoglobin 15.7g/dL (13.0-17.5) Hematocrit 46.9% (39.0-53.0) Mean Corpuscular Volume 84fL (79-100) Mean Corpuscular Hemoglobin 28pg (25-35) Mean Corpuscular Hemoglobin Concent 33g/dL (31-37) Red Cell Distribution Width 14.0% (11.5-14.5) Platelet Count 181x10^3/uL (140-400) Neutrophils (%) (Auto) 60% (31-73) Lymphocytes (%) (Auto) 29% (24-48) Monocytes (%) (Auto) 7% (0-9) Eosinophils (%) (Auto) 3% (0-3) Basophils (%) (Auto) 1% (0-3) Neutrophils # (Auto) 4.4x10^3uL (1.8-7.7) Lymphocytes # (Auto) 2.1x10^3/uL (1.0-4.8) Monocytes # (Auto) 0.5x10^3/uL (0.0-1.1) Eosinophils # (Auto) 0.2x10^3/uL (0.0-0.7) Basophils # (Auto) 0.0x10^3/uL (0.0-0.2) Prothrombin Time 11.9SEC (11.7-14.0) Prothromb Time International Ratio 0.9 (0.8-1.1) Activated Partial Thromboplast Time 26SEC (24-38) D-Dimer (Leticia) 0.29ug/mlFEU (0.00-0.50) Sodium Level 135mmol/L (136-145) Potassium Level 4.0mmol/L (3.5-5.1) Chloride Level 101mmol/L (98-107) Carbon Dioxide Level 26mmol/L (21-32) Anion Gap 8 (6-14) Blood Urea Nitrogen 21mg/dL (8-26) Creatinine 1.2mg/dL (0.7-1.3) Estimated GFR (Cockcroft-Gault) 64.4 BUN/Creatinine Ratio 18 (6-20) Glucose Level 451mg/dL (70-99) Calcium Level 9.3mg/dL (8.5-10.1) Total Bilirubin 0.4mg/dL (0.2-1.0) Aspartate Amino Transf (AST/SGOT) 14U/L (15-37) Alanine Aminotransferase (ALT/SGPT) 29U/L (16-63) Alkaline Phosphatase 93U/L (46-116) Troponin I Quantitative < 0.017ng/mL (0.000-0.055) ND-Tls-G-Type Natriuretic Peptide 11pg/mL (0-124) Total Protein 7.4g/dL (6.4-8.2) Albumin 3.5g/dL (3.4-5.0) Albumin/Globulin Ratio 0.9 (1.0-1.7) Lipase 254U/L (73-393) Ethyl Alcohol Level < 10mg/dL (0-10) Urine Opiates Screen Neg (NEG) Urine Methadone Screen Neg (NEG) Urine Barbiturates Neg (NEG) Urine Phencyclidine Screen Neg (NEG) Urine Amphetamine/Methamphetamine Neg (NEG) Urine Benzodiazepines Screen Neg (NEG) Urine Cocaine Screen Neg (NEG) Urine Cannabinoids Screen Neg (NEG) Urine Ethyl Alcohol Neg (NEG) Urine Collection Type Unknown Urine Color Yellow Urine Clarity Clear Urine pH 5.[address] >=1.030 Urine Protein Negativemg/dL (NEG-TRACE) Urine Glucose (UA) >=1000mg/dL (NEG) Urine Ketones (Stick) Negativemg/dL (NEG) Urine Blood Negative (NEG) Urine Nitrite Negative (NEG) Urine Bilirubin Negative (NEG) Urine Urobilinogen Dipstick 0.2mg/dL (0.2 mg/dL) Urine Leukocyte Esterase Negative (NEG) Urine RBC 0/HPF (0-2) Urine WBC 0/HPF (0-4) Urine Squamous Epithelial Cells Occ/LPF Urine Bacteria 0/HPF (0-FEW) Glucose (Fingerstick) 271mg/dL (70-99) Test 08/11/16 20:57 08/11/16 22:15 08/12/16 03:45 08/12/16 08:25 Glucose (Fingerstick) 223mg/dL (70-99) 187mg/dL (70-99) Troponin I Quantitative < 0.017ng/mL (0.000-0.055) < 0.017ng/mL (0.000-0.055) White Blood Count 7.1x10^3/uL (4.0-11.0) Red Blood Count 5.09x10^6/uL (4.30-5.70) Hemoglobin 14.6g/dL (13.0-17.5) Hematocrit 43.4% (39.0-53.0) Mean Corpuscular Volume 85fL (79-100) Mean Corpuscular Hemoglobin 29pg (25-35) Mean Corpuscular Hemoglobin Concent 34g/dL (31-37) Red Cell Distribution Width 14.0% (11.5-14.5) Platelet Count 168x10^3/uL (140-400) Neutrophils (%) (Auto) 46% (31-73) Lymphocytes (%) (Auto) 43% (24-48) Monocytes (%) (Auto) 6% (0-9) Eosinophils (%) (Auto) 4% (0-3) Basophils (%) (Auto) 1% (0-3) Neutrophils # (Auto) 3.2x10^3uL (1.8-7.7) Lymphocytes # (Auto) 3.1x10^3/uL (1.0-4.8) Monocytes # (Auto) 0.4x10^3/uL (0.0-1.1) Eosinophils # (Auto) 0.3x10^3/uL (0.0-0.7) Basophils # (Auto) 0.1x10^3/uL (0.0-0.2) Prothrombin Time 12.2SEC (11.7-14.0) Prothromb Time International Ratio 1.0 (0.8-1.1) Sodium Level 137mmol/L (136-145) Potassium Level 3.6mmol/L (3.5-5.1) Chloride Level 104mmol/L (98-107) Carbon Dioxide Level 23mmol/L (21-32) Anion Gap 10 (6-14) Blood Urea Nitrogen 19mg/dL (8-26) Creatinine 0.9mg/dL (0.7-1.3) Estimated GFR (Cockcroft-Gault) 89.7 Glucose Level 231mg/dL (70-99) Calcium Level 8.1mg/dL (8.5-10.1) Laboratory Tests Test 08/11/16 14:50 08/11/16 15:41 08/11/16 15:49 08/11/16 17:28 White Blood Count 7.3x10^3/uL (4.0-11.0) Red Blood Count 5.59x10^6/uL (4.30-5.70) Hemoglobin 15.7g/dL (13.0-17.5) Hematocrit 46.9% (39.0-53.0) Mean Corpuscular Volume 84fL (79-100) Mean Corpuscular Hemoglobin 28pg (25-35) Mean Corpuscular Hemoglobin Concent 33g/dL (31-37) Red Cell Distribution Width 14.0% (11.5-14.5) Platelet Count 181x10^3/uL (140-400) Neutrophils (%) (Auto) 60% (31-73) Lymphocytes (%) (Auto) 29% (24-48) Monocytes (%) (Auto) 7% (0-9) Eosinophils (%) (Auto) 3% (0-3) Basophils (%) (Auto) 1% (0-3) Neutrophils # (Auto) 4.4x10^3uL (1.8-7.7) Lymphocytes # (Auto) 2.1x10^3/uL (1.0-4.8) Monocytes # (Auto) 0.5x10^3/uL (0.0-1.1) Eosinophils # (Auto) 0.2x10^3/uL (0.0-0.7) Basophils # (Auto) 0.0x10^3/uL (0.0-0.2) Prothrombin Time 11.9SEC (11.7-14.0) Prothromb Time International Ratio 0.9 (0.8-1.1) Activated Partial Thromboplast Time 26SEC (24-38) D-Dimer (Leticia) 0.29ug/mlFEU (0.00-0.50) Sodium Level 135mmol/L (136-145) Potassium Level 4.0mmol/L (3.5-5.1) Chloride Level 101mmol/L (98-107) Carbon Dioxide Level 26mmol/L (21-32) Anion Gap 8 (6-14) Blood Urea Nitrogen 21mg/dL (8-26) Creatinine 1.2mg/dL (0.7-1.3) Estimated GFR (Cockcroft-Gault) 64.4 BUN/Creatinine Ratio 18 (6-20) Glucose Level 451mg/dL (70-99) Calcium Level 9.3mg/dL (8.5-10.1) Total Bilirubin 0.4mg/dL (0.2-1.0) Aspartate Amino Transf (AST/SGOT) 14U/L (15-37) Alanine Aminotransferase (ALT/SGPT) 29U/L (16-63) Alkaline Phosphatase 93U/L (46-116) Troponin I Quantitative < 0.017ng/mL (0.000-0.055) HN-Etx-R-Type Natriuretic Peptide 11pg/mL (0-124) Total Protein 7.4g/dL (6.4-8.2) Albumin 3.5g/dL (3.4-5.0) Albumin/Globulin Ratio 0.9 (1.0-1.7) Lipase 254U/L (73-393) Ethyl Alcohol Level < 10mg/dL (0-10) Urine Opiates Screen Neg (NEG) Urine Methadone Screen Neg (NEG) Urine Barbiturates Neg (NEG) Urine Phencyclidine Screen Neg (NEG) Urine Amphetamine/Methamphetamine Neg (NEG) Urine Benzodiazepines Screen Neg (NEG) Urine Cocaine Screen Neg (NEG) Urine Cannabinoids Screen Neg (NEG) Urine Ethyl Alcohol Neg (NEG) Urine Collection Type Unknown Urine Color Yellow Urine Clarity Clear Urine pH 5.[address] >=1.030 Urine Protein Negativemg/dL (NEG-TRACE) Urine Glucose (UA) >=1000mg/dL (NEG) Urine Ketones (Stick) Negativemg/dL (NEG) Urine Blood Negative (NEG) Urine Nitrite Negative (NEG) Urine Bilirubin Negative (NEG) Urine Urobilinogen Dipstick 0.2mg/dL (0.2 mg/dL) Urine Leukocyte Esterase Negative (NEG) Urine RBC 0/HPF (0-2) Urine WBC 0/HPF (0-4) Urine Squamous Epithelial Cells Occ/LPF Urine Bacteria 0/HPF (0-FEW) Glucose (Fingerstick) 271mg/dL (70-99) Test 08/11/16 20:57 08/11/16 22:15 08/12/16 03:45 08/12/16 08:25 Glucose (Fingerstick) 223mg/dL (70-99) 187mg/dL (70-99) Troponin I Quantitative < 0.017ng/mL (0.000-0.055) < 0.017ng/mL (0.000-0.055) White Blood Count 7.1x10^3/uL (4.0-11.0) Red Blood Count 5.09x10^6/uL (4.30-5.70) Hemoglobin 14.6g/dL (13.0-17.5) Hematocrit 43.4% (39.0-53.0) Mean Corpuscular Volume 85fL (79-100) Mean Corpuscular Hemoglobin 29pg (25-35) Mean Corpuscular Hemoglobin Concent 34g/dL (31-37) Red Cell Distribution Width 14.0% (11.5-14.5) Platelet Count 168x10^3/uL (140-400) Neutrophils (%) (Auto) 46% (31-73) Lymphocytes (%) (Auto) 43% (24-48) Monocytes (%) (Auto) 6% (0-9) Eosinophils (%) (Auto) 4% (0-3) Basophils (%) (Auto) 1% (0-3) Neutrophils # (Auto) 3.2x10^3uL (1.8-7.7) Lymphocytes # (Auto) 3.1x10^3/uL (1.0-4.8) Monocytes # (Auto) 0.4x10^3/uL (0.0-1.1) Eosinophils # (Auto) 0.3x10^3/uL (0.0-0.7) Basophils # (Auto) 0.1x10^3/uL (0.0-0.2) Prothrombin Time 12.2SEC (11.7-14.0) Prothromb Time International Ratio 1.0 (0.8-1.1) Sodium Level 137mmol/L (136-145) Potassium Level 3.6mmol/L (3.5-5.1) Chloride Level 104mmol/L (98-107) Carbon Dioxide Level 23mmol/L (21-32) Anion Gap 10 (6-14) Blood Urea Nitrogen 19mg/dL (8-26) Creatinine 0.9mg/dL (0.7-1.3) Estimated GFR (Cockcroft-Gault) 89.7 Glucose Level 231mg/dL (70-99) Calcium Level 8.1mg/dL (8.5-10.1) Medications Current Medications Nitroglycerin (Nitrostat) 0.4 mg PRN Q5MIN PRN SL CHEST PAIN Last administered on 08/11/16t 15:30; Start 08/11/16 at 15:15 Aspirin (Ecotrin) 325 mg 1X ONCE PO Last administered on 08/11/16 15:26; Start 08/11/16 at 15:15; Stop 08/11/16 at 15:16; Status DC Morphine Sulfate 5 mg 1X ONCE IV Last administered on 08/11/16 15:35; Start 08/11/16 at 15:15; Stop 08/11/16 at 15:16; Status DC Ondansetron HCl (Zofran) 4 mg 1X ONCE IV Last administered on 08/11/16 15:17 ; Start 08/11/16 at 15:15; Stop 08/11/16 at 15:16; Status DC Aspirin (Amy Aspirin) 325 mg STK-MED ONCE .ROUTE ; Start 08/11/16 at 15:13; Stop 08/11/16 at 15:14; Status DC Enoxaparin Sodium (Lovenox 100mg Syringe) 95 mg 1X ONCE SQ Last administered on 08/11/16 15:35; Start 08/11/16 at 15:30; Stop 08/11/16 at 15:31; Status DC Albuterol/ Ipratropium 3 ml 3 ml 1X ONCE NEB Last administered on 08/11/16 15 :48; Start 08/11/16 at 15:30; Stop 08/11/16 at 15:32; Status DC Sodium Chloride (Iv Sodium Chloride 0.9% 1000ml Bag) 1,000 ml @ 0 mls/hr 1X ONCE IV ; Start 08/11/16 at 16:00; Stop 08/11/16 at 16:01; Status DC Insulin Human Regular (Novolin R Vial) 10 unit 1X ONCE IV Last administered on 08/11/16 16:22; Start 08/11/16 at 16:00; Stop 08/11/16 at 16:01; Status DC Ondansetron HCl (Zofran) 4 mg PRN Q8HRS PRN IV NAUSEA/VOMITING; Start 08/11/16 at 16:15; Stop 08/12/16 at 16:14 Fentanyl Citrate 50 mcg 50 mcg PRN Q2HR PRN IV PAIN Last administered on 22:48; Start 08/11/16 at 16:15; Stop 08/12/16 at 16:14 Sodium Chloride (Iv Sodium Chloride 0.9% 1000ml Bag) 1,000 ml @ 1,000 mls/hr 1X ONCE IV Last administered on 08/11/16 16:23; Start 08/11/16 at 16:15; Stop 08/11/16 at 17:14; Status DC Iohexol (Omnipaque 300 Mg/ml) 75 ml 1X ONCE IV Last administered on 08/11/16 16:56; Start 08/11/16 at 16:45; Stop 08/11/16 at 16:46; Status DC Enoxaparin Sodium (Lovenox 100mg Syringe) 100 mg Q12HR SQ Last administered on 08/12/16 08:48; Start 08/12/16 at 09:00 Enoxaparin Sodium (Lovenox 30mg Syringe) 10 mg 1X ONCE SQ Last administered on 08/11/16 18:34; Start 08/11/16 at 17:45; Stop 08/11/16 at 17:46; Status DC Acetaminophen (Tylenol) 325 mg PRN Q6HRS PRN PO MILD PAIN / TEMP; Start at 17:45 Acetaminophen/ Hydrocodone Bitart (Lortab 5/325) 1 tab PRN Q6HRS PRN PO MODERATE TO SEVERE PAIN Last administered on 08/12/16 08:47; Start 08/11/16 at 17:45 Hydralazine HCl (Apresoline) 10 mg PRN Q4HRS PRN IVP ELEVATED BP, SEE COMMENTS ; Start 08/11/16 at 17:45 Ondansetron HCl (Zofran) 4 mg PRN Q8HRS PRN IV NAUSEA/VOMITING; Start 08/11/16 at 17:45 Albuterol Sulfate (Ventolin Neb Soln) 2.5 mg PRN Q4HRS PRN NEB SHORTNESS OF BREATH; Start 08/11/16 at 17:45 Insulin Aspart (Novolog) 0-9 UNITS TIDWMEALS SQ ; Start 08/12/16 at 08:00 Dextrose (Dextrose 50%-Water Syringe) 12.5 gm PRN Q15MIN PRN IV SEE COMMENTS; Start 08/11/16 at 17:45 Insulin Aspart (Novolog) 10 units 1X ONCE SQ Last administered on 08/11/16 18 :11; Start 08/11/16 at 18:15; Stop 08/11/16 at 18:16; Status DC Atorvastatin Calcium (Lipitor) 80 mg QHS PO ; Start 08/12/16 at 21:00 Non-Formulary Medication 100 mg DAILYAC PO Last administered on 08/12/16 08:49 ; Start 08/12/16 at 07:30 Escitalopram Oxalate (Lexapro) 20 mg DAILY PO Last administered on 08/12/16 08: 48; Start 08/12/16 at 09:00 Fenofibrate (Lofibra) 134 mg DAILY PO Last administered on 08/12/16 08:47; Start 08/12/16 at 09:00 Insulin Detemir (Levemir) 35 units QHS SQ ; Start 08/11/16 at 22:00; Status Cancel Non-Formulary Medication 1 ea QHS SQ ; Start 08/12/16 at 21:00 Non-Formulary Medication 1 ea HS SQ Last administered on 08/11/16 22:36; Start 08/11/16 at 22:00 Warfarin Sodium (Coumadin Per Pharmacy) 1 each PRN DAILY PRN MC SEE COMMENTS Last administered on 08/12/16 00:23; Start 08/11/16 at 22:30 Warfarin Sodium (Coumadin) 7.5 mg 1X ONCE PO Last administered on 08/12/16 00: 25; Start 08/11/16 at 23:00; Stop 08/11/16 at 23:01; Status DC Active Scripts Active Hydrocodone-Apap 5-325 (Hydrocodone Bit/Acetaminophen) 1 Each Tablet 2 Tab PO PRN Q4-6HRS PRN Hydrocodone-Apap 5-325 (Hydrocodone Bit/Acetaminophen) 1 Each Tablet 2 Tab PO Q4-6HRS PRN Reported Lantus (Insulin Glargine,Hum.rec.anlog) 100 Unit/1 Ml Vial 35 Unit SQ HS Victoza 2-Jermaine (Liraglutide) 0.6 Mg/0.1 Ml Pen.injctr 1.8 Mg SQ Invokana (Canagliflozin) 100 Mg Tablet 100 Mg PO DAILYAC Atorvastatin Calcium 80 Mg Tablet 1 Tab PO DAILY Fenofibrate 160 Mg Tablet 1 Tab PO DAILY Escitalopram Oxalate 20 Mg Tablet 1 Tab PO DAILY Vitals/I & O Vital Sign - Last 24 Hours 08/11/16 08/11/16 08/11/16 08/11/16 14:53 15:16 15:23 15:24 Temp 98.4 98.4 Pulse 99 101 101 101 Resp B/P 153/96 132/91 115/74 115/74 Pulse Ox 95 91 O2 Delivery Room Air Nasal Cannula O2 Flow Rate 2 08/11/16 08/11/16 08/11/16 08/11/16 15:30 15:30 15:35 15:44 Pulse 103 104 110 Resp B/P 119/73 119/73 123/82 Pulse Ox 90 91 90 O2 Delivery Nasal Cannula Nasal Cannula Nasal Cannula O2 Flow Rate 3 3.0 3 08/11/16 08/11/16 08/11/16 08/11/16 15:48 15:59 16:14 16:23 Pulse 104 104 Resp B/P 118/79 126/83 Pulse Ox 90 90 91 O2 Delivery Nasal Cannula Nasal Cannula Nasal Cannula Nasal Cannula O2 Flow Rate 3.0 3 3 4.0 08/11/16 08/11/16 08/11/16 08/11/16 16:29 17:22 18:00 18:58 Temp 97.8 98.4 97.8 98.4 Pulse 102 99 89 Resp B/P 124/79 116/73 103/64 Pulse Ox 92 93 93 O2 Delivery Nasal Cannula Nasal Cannula Nasal Cannula Nasal Cannula O2 Flow Rate 4 4.0 4.0 08/11/16 08/11/16 08/11/16 08/11/16 19:21 19:29 20:00 20:00 Resp 20 20 Pulse Ox 93 95 O2 Delivery Nasal Cannula Nasal Cannula Nasal Cannula Nasal Cannula O2 Flow Rate 4.0 4.0 4.0 4.0 08/11/16 08/11/16 08/11/16 08/11/16 21:08 22:10 22:48 23:39 Temp 97.9 97.9 Pulse 82 Resp 20 20 18 16 B/P 116/81 Pulse Ox 93 95 93 95 O2 Delivery Nasal Cannula Nasal Cannula Nasal Cannula Nasal Cannula O2 Flow Rate 4.0 4.0 4.0 4.0 08/12/16 08/12/16 08/12/16 03:33 07:00 08:47 Temp 97.5 97.4 97.5 97.4 Pulse 72 81 Resp 18 20 B/P 92/64 120/96 Pulse Ox 96 96 O2 Delivery Nasal Cannula Nasal Cannula Room Air O2 Flow Rate 4.0 4.0 Intake and Output 08/11/16 08/11/16 08/12/16 15:00 23:00 07:00 Intake Total 240 ml 850 ml Output Total 525 ml Balance 240 ml 325 ml MARCI HERNANDEZ III DO August 12, 2016 10:47
[2016-08-12 10:50] VITALS: BP 119/86
--- NOTE | 2016-08-12 11:18 | PDOC2 ---
WOJCIECH MENSAH DIRECTOR OF LEADERSHIP DEVELOPMENT 08/12/16 1118: CARDIAC CONSULT DATE OF CONSULT Date of Consult DATE: 08/12/16 TIME: 11:12 REASON FOR CONSULT Reason for Consult: Chest pain REFERRING PHYSICIAN Referring Physician: Dr. Castañeda SOURCE Source: Chart review, Patient HISTORY OF PRESENT ILLNESS HISTORY OF PRESENT ILLNESS This is a 50 yo male who presented with complaints of chest pain. Patient reports pain began yesterday afternoon. Located in his left chest and radiated to his left arm. Describes as stabbing in nature. Associated with nausea, shortness of air, and dizziness. No palpitations, diaphoresis, or LE edema. Worsened by deep breathing and with ambulation. Not affected by eating, pressing on left chest, or with certain movements. History of HTN, HLP, and diabetes. Had "normal" cardiac cath 22 years ago and reports have normal treadmill stress approximately 5 years ago. 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 ) GI: Other (renal stones ) Heme/Onc: No pertinent hx Hepatobiliary: No pertinent hx Musculoskeletal: Osteoarthritis Rheumatologic: No pertinent hx Infectious disease: No pertinent hx ENT: No pertinent hx Renal/: No pertinent hx Endocrine: Diabetes PAST SURGICAL HISTORY Past Surgical History: Cholecystectomy, Other (left rotator cuff, bilateral ACL , back sx) FAMILY HISTORY Family History: Coronary Artery Disease (father ), Hypertension SOCIAL HISTORY Smoke: No ALCOHOL: none Drugs: None Lives: with Family CURRENT MEDICATIONS CURRENT MEDICATIONS Current Medications Medications (Trade) Dose Ordered Sig/Gadiel Route PRN Reason Start Time Stop Time Status Last Admin Dose Admin Nitroglycerin (Nitrostat) 0.4 mg PRN Q5MIN PRN SL CHEST PAIN 08/11/16 15:15 08/11/16 15:30 Aspirin (Ecotrin) 325 mg 1X ONCE PO 08/11/16 15:15 08/11/16 15:16 DC 08/11/16 15:26 Morphine Sulfate 5 mg 1X ONCE IV 08/11/16 15:15 08/11/16 15:16 DC 08/11/16 15:35 Ondansetron HCl (Zofran) 4 mg 1X ONCE IV 08/11/16 15:15 08/11/16 15:16 DC 08/11/16 15:17 Enoxaparin Sodium (Lovenox 100mg Syringe) 95 mg 1X ONCE SQ 08/11/16 15:30 08/11/16 15:31 DC 08/11/16 15:35 Albuterol/ Ipratropium (Duoneb) 3 ml 1X ONCE NEB 08/11/16 15:30 08/11/16 15:32 DC 08/11/16 15:48 Insulin Human Regular (Novolin R Vial) 10 unit 1X ONCE IV 08/11/16 16:00 08/11/16 16:01 DC 08/11/16 16:22 Fentanyl Citrate 50 mcg 50 mcg PRN Q2HR PRN IV PAIN 08/11/16 16:15 08/12/16 16:14 08/11/16 22:48 Sodium Chloride (Iv Sodium Chloride 0.9% 1000ml Bag) 1,000 ml @ 1,000 mls/hr 1X ONCE IV 08/11/16 16:15 08/11/16 17:14 DC 08/11/16 16:23 Iohexol (Omnipaque 300 Mg/ml) 75 ml 1X ONCE IV 08/11/16 16:45 08/11/16 16:46 DC 08/11/16 16:56 Enoxaparin Sodium (Lovenox 100mg Syringe) 100 mg Q12HR SQ 08/12/16 09:00 08/12/16 08:48 Enoxaparin Sodium (Lovenox 30mg Syringe) 10 mg 1X ONCE SQ 08/11/16 17:45 08/11/16 17:46 DC 08/11/16 18:34 Acetaminophen/ Hydrocodone Bitart (Lortab 5/325) 1 tab PRN Q6HRS PRN PO MODERATE TO SEVERE PAIN 08/11/16 17:45 08/12/16 08:47 Insulin Aspart (Novolog) 10 units 1X ONCE SQ 08/11/16 18:15 08/11/16 18:16 DC 08/11/16 18:11 Non-Formulary Medication 100 mg DAILYAC PO 08/12/16 07:30 08/12/16 08:49 Escitalopram Oxalate (Lexapro) 20 mg DAILY PO 08/12/16 09:00 08/12/16 08:48 Fenofibrate (Lofibra) 134 mg DAILY PO 08/12/16 09:00 08/12/16 08:47 Non-Formulary Medication 1 ea HS SQ 08/11/16 22:00 08/11/16 22:36 Warfarin Sodium (Coumadin Per Pharmacy) 1 each PRN DAILY PRN MC SEE COMMENTS 08/11/16 22:30 08/12/16 00:23 Warfarin Sodium (Coumadin) 7.5 mg 1X ONCE PO 08/11/16 23:00 08/11/16 23:01 DC 08/12/16 00:25 ALLERGIES ALLERGIES: Coded Allergies: Penicillins (Verified Allergy, Intermediate, 12/01/15) doxycycline (Verified Allergy, Intermediate, Rash, 08/11/16) ROS Review of System 14 point ROS conducted with pertinent positives noted above in HPI. PHYSICAL EXAM General: Alert, Oriented X3, Cooperative, No acute distress HEENT: Atraumatic, Mucous membr. moist/pink Lungs: Clear to auscultation Heart: Regular rate, Normal S1, Normal S2, Other (tele: SR) Abdomen: Soft, No tenderness Extremities: No edema, Normal pulses Skin: No breakdown, No significant lesion Neuro: Normal speech, Sensation intact Psych/Mental Status: Mental status NL, Mood NL MUSCULOSKELETAL: Full range of motion without pain VITALS VITALS Vital Signs Date Time Temp Pulse Resp B/P Pulse Ox O2 Delivery O2 Flow Rate FiO2 08/12/16 10:50 97.9 83 17 119/86 94 Room Air 97.9 08/12/16 07:00 4.0 LABS Lab: Laboratory Tests Test 08/11/16 14:50 08/11/16 15:41 08/11/16 15:49 08/11/16 17:28 White Blood Count 7.3x10^3/uL (4.0-11.0) Red Blood Count 5.59x10^6/uL (4.30-5.70) Hemoglobin 15.7g/dL (13.0-17.5) Hematocrit 46.9% (39.0-53.0) Mean Corpuscular Volume 84fL (79-100) Mean Corpuscular Hemoglobin 28pg (25-35) Mean Corpuscular Hemoglobin Concent 33g/dL (31-37) Red Cell Distribution Width 14.0% (11.5-14.5) Platelet Count 181x10^3/uL (140-400) Neutrophils (%) (Auto) 60% (31-73) Lymphocytes (%) (Auto) 29% (24-48) Monocytes (%) (Auto) 7% (0-9) Eosinophils (%) (Auto) 3% (0-3) Basophils (%) (Auto) 1% (0-3) Neutrophils # (Auto) 4.4x10^3uL (1.8-7.7) Lymphocytes # (Auto) 2.1x10^3/uL (1.0-4.8) Monocytes # (Auto) 0.5x10^3/uL (0.0-1.1) Eosinophils # (Auto) 0.2x10^3/uL (0.0-0.7) Basophils # (Auto) 0.0x10^3/uL (0.0-0.2) Prothrombin Time 11.9SEC (11.7-14.0) Prothromb Time International Ratio 0.9 (0.8-1.1) Activated Partial Thromboplast Time 26SEC (24-38) D-Dimer (Leticia) 0.29ug/mlFEU (0.00-0.50) Sodium Level 135mmol/L (136-145) Potassium Level 4.0mmol/L (3.5-5.1) Chloride Level 101mmol/L (98-107) Carbon Dioxide Level 26mmol/L (21-32) Anion Gap 8 (6-14) Blood Urea Nitrogen 21mg/dL (8-26) Creatinine 1.2mg/dL (0.7-1.3) Estimated GFR (Cockcroft-Gault) 64.4 BUN/Creatinine Ratio 18 (6-20) Glucose Level 451mg/dL (70-99) Calcium Level 9.3mg/dL (8.5-10.1) Total Bilirubin 0.4mg/dL (0.2-1.0) Aspartate Amino Transf (AST/SGOT) 14U/L (15-37) Alanine Aminotransferase (ALT/SGPT) 29U/L (16-63) Alkaline Phosphatase 93U/L (46-116) Troponin I Quantitative < 0.017ng/mL (0.000-0.055) BW-Joy-M-Type Natriuretic Peptide 11pg/mL (0-124) Total Protein 7.4g/dL (6.4-8.2) Albumin 3.5g/dL (3.4-5.0) Albumin/Globulin Ratio 0.9 (1.0-1.7) Lipase 254U/L (73-393) Ethyl Alcohol Level < 10mg/dL (0-10) Urine Opiates Screen Neg (NEG) Urine Methadone Screen Neg (NEG) Urine Barbiturates Neg (NEG) Urine Phencyclidine Screen Neg (NEG) Urine Amphetamine/Methamphetamine Neg (NEG) Urine Benzodiazepines Screen Neg (NEG) Urine Cocaine Screen Neg (NEG) Urine Cannabinoids Screen Neg (NEG) Urine Ethyl Alcohol Neg (NEG) Urine Collection Type Unknown Urine Color Yellow Urine Clarity Clear Urine pH 5.5 Urine Specific [place] >=1.030 Urine Protein Negativemg/dL (NEG-TRACE) Urine Glucose (UA) >=1000mg/dL (NEG) Urine Ketones (Stick) Negativemg/dL (NEG) Urine Blood Negative (NEG) Urine Nitrite Negative (NEG) Urine Bilirubin Negative (NEG) Urine Urobilinogen Dipstick 0.2mg/dL (0.2 mg/dL) Urine Leukocyte Esterase Negative (NEG) Urine RBC 0/HPF (0-2) Urine WBC 0/HPF (0-4) Urine Squamous Epithelial Cells Occ/LPF Urine Bacteria 0/HPF (0-FEW) Glucose (Fingerstick) 271mg/dL (70-99) Test 08/11/16 20:57 08/11/16 22:15 08/12/16 03:45 08/12/16 08:25 Glucose (Fingerstick) 223mg/dL (70-99) 187mg/dL (70-99) Troponin I Quantitative < 0.017ng/mL (0.000-0.055) < 0.017ng/mL (0.000-0.055) White Blood Count 7.1x10^3/uL (4.0-11.0) Red Blood Count 5.09x10^6/uL (4.30-5.70) Hemoglobin 14.6g/dL (13.0-17.5) Hematocrit 43.4% (39.0-53.0) Mean Corpuscular Volume 85fL (79-100) Mean Corpuscular Hemoglobin 29pg (25-35) Mean Corpuscular Hemoglobin Concent 34g/dL (31-37) Red Cell Distribution Width 14.0% (11.5-14.5) Platelet Count 168x10^3/uL (140-400) Neutrophils (%) (Auto) 46% (31-73) Lymphocytes (%) (Auto) 43% (24-48) Monocytes (%) (Auto) 6% (0-9) Eosinophils (%) (Auto) 4% (0-3) Basophils (%) (Auto) 1% (0-3) Neutrophils # (Auto) 3.2x10^3uL (1.8-7.7) Lymphocytes # (Auto) 3.1x10^3/uL (1.0-4.8) Monocytes # (Auto) 0.4x10^3/uL (0.0-1.1) Eosinophils # (Auto) 0.3x10^3/uL (0.0-0.7) Basophils # (Auto) 0.1x10^3/uL (0.0-0.2) Prothrombin Time 12.2SEC (11.7-14.0) Prothromb Time International Ratio 1.0 (0.8-1.1) Sodium Level 137mmol/L (136-145) Potassium Level 3.6mmol/L (3.5-5.1) Chloride Level 104mmol/L (98-107) Carbon Dioxide Level 23mmol/L (21-32) Anion Gap 10 (6-14) Blood Urea Nitrogen 19mg/dL (8-26) Creatinine 0.9mg/dL (0.7-1.3) Estimated GFR (Cockcroft-Gault) 89.7 Glucose Level 231mg/dL (70-99) Calcium Level 8.1mg/dL (8.5-10.1) ASSESSMENT/PLAN ASSESSMENT/PLAN 1. Chest pain troponin series normal- AMI ruled out ASA in ED. On Lovenox. echo pending to assess LV function/presence of WMA if repeat CTA negative, could consider stress test to r/o ischemic nature given symptomatology and significant cardiac risk factors. further recommendations pending diagnostics 2. PE initial CTA with evidence of small right pulmonary emboli d/w pulmonary- concern for artifact; repeat CTA ordered Lovenox and Warfarin initiated management per pulm 3. Hypertension controlled 4. Hyperlipidemia check lipids on statin 5. Diabetes per PCP Problems: KAYLEE GIFFORD MD 08/12/16 4714: CARDIAC CONSULT ALLERGIES ALLERGIES: Coded Allergies: Penicillins (Verified Allergy, Intermediate, 12/01/15) doxycycline (Verified Allergy, Intermediate, Rash, 08/11/16) ASSESSMENT/PLAN ASSESSMENT/PLAN Patient seen and examined. Agree with FLIGHT PHYSICIAN's assessment and plan Chest pain with atypical features Myocardial infarction ruled out 2-D echo showed normal LV function without any wall motion abnormalities Continue workup and treatment for PE per pulmonary team We will consider ischemic evaluation with stress test as an outpatient Thank you for your consultation Problems: WOJCIECH MENSAH APRN August 12, 2016 11:18 KAYLEE GIFFORD MD August 12, 2016 16:54
--- NOTE | 2016-08-12 11:39 | PDOC ---
Provider Note Provider Note dictated ? PE, will repeat CTA chest BRYCE ARIZA MD August 12, 2016 11:39
[2016-08-12] MEDS ORDERED: IOHEXOL 300 MG/ML 75 ML VIAL IV ONE (12:15)
[2016-08-12 12:28] LABS: CHOLESTEROL 225 mg/dL (0-200); HDLC 20 mg/dL (40-60); NON-HDL CHOLESTEROL 205 mg/dL (0-129)
--- NOTE | 2016-08-12 12:28 | CONS ---
DATE OF CONSULTATION: ATTENDING PHYSICIAN: Dr. Morales. REASON FOR CONSULTATION: Chest pain, possible PE. HISTORY OF PRESENT ILLNESS: The patient is a 50-year-old male with history of traumatic brain injury about 4 years ago and has a relative sedentary lifestyle. He presented to the hospital after he developed pain in the chest on the left side with radiation to the left shoulder. The patient said when he had the pain, he did felt short of breath. However, he is comfortable at present. He underwent CTA of the chest, which was personally reviewed by me and discussed with Dr. Guadarrama this morning. I am not totally convinced that he has pulmonary embolism in the right lower lobe tertiary branch. This could be a motion artifact. I did not see anything obvious PE in the right upper lobe either. The pain was on the left side and reportedly PE was on the right lower lobe. He was started on Lovenox along with Coumadin. I have been asked to see him for further evaluation. He has no significant history of tobacco use. No cough, no fever, no chills. His venous Dopplers of the lower extremities are negative as well. PAST MEDICAL HISTORY: History of type 2 diabetes, history of head injury in 2012, history of back pain. PAST SURGICAL HISTORY: Cholecystectomy, ACL and rotator cuff repair. SOCIAL HISTORY: Nonsmoker, nonalcoholic. FAMILY HISTORY: No family history of blood clots. ALLERGIES: PENICILLIN AND DOXYCYCLINE. CURRENT MEDICATIONS: Reviewed as listed in the MRAD. PHYSICAL EXAMINATION: VITAL SIGNS: Stable, afebrile, pulse ox 94% on room air, now initially was 96% on 4 liters. HEENT: Sclerae nonicteric. NECK: Supple. LUNGS: Clear. CARDIOVASCULAR: Regular rate. ABDOMEN: Soft. EXTREMITIES: With no pitting edema. LABORATORY DATA: Reviewed. Sodium 137, potassium 3.6, chloride 104, BUN 19, creatinine 0.9. White cell count 7.1, hemoglobin 14.6 and platelets are 168. IMPRESSION: 1. Left-sided chest pain with radiation to the left shoulder. I am not convinced by looking at the CTA chest that he has a clot in the tertiary branch of the right lower lobe and also in the right upper lobe. I have discussed with Dr. Guadarrama. Before I subject him to minimum 3 months of anticoagulation, I would like to repeat the CTA chest. The symptoms of left-sided chest pain and shoulder may point towards an anginal pain. 2. No significant history of tobacco use. 3. No evidence of DVT in the lower extremity Dopplers. 4. History of traumatic brain injury. RECOMMENDATIONS: 1. Continue with Lovenox and Coumadin for now. 2. Repeat CTA chest after some hydration. 3. Follow cardiology recommendation. 4. Follow echocardiogram report. 5. May need stress test, if CTA chest is negative. 6. We will discontinue warfarin, if the CTA chest is negative for PE. 7. Discussed with the patient and his . Also, with Cardiology nurse practitioner. BRYCE ARIZA MD DR: MISTI/kamini JOB#: [id number] / [id number] AYO
[2016-08-12 13:10] LABS: CHOLESTEROL/HDL RATIO 11.3; TRIGLYCERIDES 1443 mg/dL (0-150)
[2016-08-12] MEDS ORDERED: ANTI-COAG MONITOR BY PHARMACY. MC PRN (13:45)
--- NOTE | 2016-08-12 14:47 | RAD ---
Indication assess for potential pulmonary emboli. Contrast imaging through the chest was performed. Examination was tailored for the detection of pulmonary embolus. Note is made of the similar examination one day earlier. Approximately 75 cc of Omnipaque 300 was administered. MIP images were generated and reviewed. Imaging through the upper abdomen is unremarkable. The thoracic aorta and mediastinum are unchanged. There are scattered areas of pleural-parenchymal scarring. An acute parenchymal infiltrate or dominant soft tissue mass in either lung is not seen. No embolus is seen. Definite pulmonary emboli to the right lung are not seen IMPRESSION: No acute finding in the chest. Negative study for pulmonary embolus PQRS Compliance Statement: One or more of the following individualized dose reduction techniques were utilized for this examination: 1. Automated exposure control 2. Adjustment of the mA and/or kV according to patient size 3. Use of iterative reconstruction technique
--- NOTE | 2016-08-12 15:07 | CARD ---
APPROVED REPORT EXAM: Two-dimensional and M-mode echocardiogram with Doppler and color Doppler. Other Information Quality : Good INDICATION Pericardial Effusion Chest Pain 2D DIMENSIONS RVDd2.5 (2.9-3.5cm)Left Atrium(2D)3.3 (1.6-4.0cm) IVSd0.7 (0.7-1.1cm)Aortic Root(2D)3.1 (2.0-3.7cm) LVDd5.7 (3.9-5.9cm)LVOT Diameter2.0 (1.8-2.4cm) PWd0.9 (0.7-1.1cm)LVDs2.6 (2.5-4.0cm) FS (%) 30.0 %SV133.0 ml LVEF(%)60.0 (>50%) Aortic Valve AoV Peak Ab.133.2cm/sAoV VTI22.7cm AO Peak GR.7.1mmHgLVOT Peak Ab.121.7cm/s LVOT VTI 22.74cmAO Mean GR.4mmHg AMBROCIO (VMAX)2.04tq1IAF (VTI)3.17cm2 Mitral Valve MV E Umykwyxz18.9cm/sMV DECEL [id number] MV A Mpfhjzya97.6cm/sMV [id number] E/A Ratio1.1MVA (PHT)3.16cm2 TDI E/Lateral E'10.0E/Medial E'10.6 Pulmonary Vein S1 Epcpjoni91.9cm/sD2 Aihsmmbb11.6cm/s PVa [id number] LEFT VENTRICLE The left ventricle is normal size. There is normal left ventricular wall thickness. The left ventricu lar systolic function is normal and the ejection fraction is within normal range. The Ejection Fracti on is 55-60%. There is normal LV segmental wall motion. Transmitral Doppler flow pattern is Grade I-a bnormal relaxation pattern. RIGHT VENTRICLE The right ventricle is normal size. The right ventricular systolic function is normal. ATRIA The left atrium size is normal. The right atrium size is normal. The interatrial septum is intact wit h no evidence for an atrial septal defect or patent foramen ovale as noted on 2-D or Doppler imaging. AORTIC VALVE The aortic valve is calcified but opens well. Doppler and Color Flow revealed no significant aortic r egurgitation. There is no significant aortic valvular stenosis. MITRAL VALVE The mitral valve is normal in structure and function. There is no evidence of mitral valve prolapse. There is no mitral valve stenosis. Doppler and Color-flow revealed trace mitral regurgitation. TRICUSPID VALVE The tricuspid valve is normal in structure and function. Doppler and Color Flow revealed trace tricus pid regurgitation. There is no tricuspid valve stenosis. PULMONIC VALVE Doppler and Color Flow revealed trace pulmonic valvular regurgitation. There is no pulmonic valvular stenosis. GREAT VESSELS The aortic root is normal in size. The ascending aorta is normal in size. The IVC is normal in size a nd collapses >50% with inspiration. PERICARDIAL EFFUSION There is no evidence of significant pericardial effusion. Critical Notification Critical Value: No <Conclusion> The left ventricular systolic function is normal and the ejection fraction is within normal range. Th e Ejection Fraction is 55-60%. There is normal LV segmental wall motion.
[2016-08-12 15:09] VITALS: BP 128/96
[2016-08-12] MEDS ORDERED: WARFARIN 7.5 MG TABLET. PO ONE (16:00)
[2016-08-12 19:00] VITALS: BP 122/89
[2016-08-12] MEDS: ATORVASTATIN CALCIUM 40 MG TABLET. PO SCH (21:29)
[2016-08-12] MEDS: VICTOZA SQ SCH (21:33)
[2016-08-12] MEDS: LANTUS SQ SCH (21:39)
[2016-08-12 23:00] VITALS: BP 130/91
[2016-08-13 03:00] VITALS: BP 101/62
[2016-08-13 05:11] LABS: PROTHROMBIN TIME PATIENT 12.8 SEC (11.7-14.0)
[2016-08-13 07:30] VITALS: BP 126/83
[2016-08-13] MEDS: INSULIN ASPART 300 UNITS/3 ML INSULN.PEN SQ SCH ×3 (08:00→17:00)
[2016-08-13] MEDS ORDERED: REGADENOSON 0.4 MG/5 ML DISP.SYRIN. IV ONE (08:15)
[2016-08-13] MEDS: NON FORMULARY ITEM (Canagliflozin (Invokana) 100 MG) PO SCH (09:43)
[2016-08-13] MEDS: FENOFIBRATE,MICRONIZED 134 MG CAPSULE PO SCH (09:44)
[2016-08-13] MEDS: ESCITALOPRAM 10 MG TABLET. PO SCH (09:44)
[2016-08-13] MEDS: HYDROCODONE/APAP 5/325MG TABLET. PO PRN (09:44)
[2016-08-13] MEDS: ENOXAPARIN 40 MG/0.4 ML SYRINGE. SQ SCH (09:46)
[2016-08-13] MEDS: NITROGLYCERIN SUBLINGUAL 0.4 MG BOTTLE OF 25. SL PRN (09:50)
[2016-08-13 11:00] VITALS: BP 115/80
--- NOTE | 2016-08-13 11:03 | RAD ---
APPROVED REPORT Test Type: Pharmacological Stress Nurse/Tech: Bella Figueroa RN Test Indications: chest pain Cardiac History: See EMR Medications: See EMR Medical History: See EMR Resting ECG: SR Resting Heart Rate: 87 bpm Resting Blood Pressure: 123/86mmHg Pretest Chest Pain: Typical angina Nurse/Tech Notes HR 80's, SR per monitor. S1S2. NO c/o SOA. Pt c/o CP 07/22. Consent: The procedure was explained to the patient in lay terms. Informed consent was witnessed. Zac eout was entered into makr. History and Stress Test performed by RT Jair (R) (N) Pharm. Details Pharmacologic stress testing was performed using 0.4mg per 5ml of regadenoson given intravenously ove r 7-10 seconds. Stress Symptoms Chest pain increased to 6/10 during test with complaints of nausea as well. Chest pain decreased to 4 /10 when test complete. KYLE Okeefe notified. POST EXERCISE Reason for Termination: Infusion complete Max HR: 165 bpm Max Blood Pressure: 139/89mmHg Chest Pain: Yes. see above notes Arrhythmia: No. ST Change: No. INTERPRETATION Stress EKG Conclusion: No evidence of stress induced EKG changes. Imaging Protocol IMAGE PROTOCOL: Rest Tc-99m/stress Tc-99m 1 day Rest: Stress: Viability: Radiopharm.Tc99m GuaxdvwupDj50j Sestamibi Jeon47tGc 33mCi Duration 15min. 10min. Img Date 08/13/2016 08/13/2016 Inj-Img Ppwq52nno. 60min. Rest Admin Site:IV - Left AntecubitalAdministrator:RT Medina (R)(N) Stress Admin Site: IV - Left AntecubitalAdministrator: RT Jair (R)(N) STRESS DATA End Diast. Vol.75.0mlAv. Heart Rate97.0bpm End Syst. Vol.10.0mlCO Index BSA0.0L/min Myocardial Lavq954.0gEject. Dzdcudsi79.0% Stress Rates Pk. Fill Rate3.15EDV/secLVtime Pk. Fill 165.62msec Pk. Empty Rate4.80ESV/secLVtime Pk. Vafwj889.88msec 04/16 Pk. Fill0.85EDV/sec Stress Scores Regional WT0.00Summed WT2.00 Regional WM0.00Summed WM2.00 The rest and stress images show normal perfusion, normal contraction and thickening. LV Perf. Quant 17 Seg. SSS0.00 17 Seg. SRS0.00 17 Seg. SDS0.00 Stress Defect Extent (% LAD)0.00Rest Defect Extent (% LAD)0.00Rev. Defect Extent (% LAD)0.00 Stress Defect Extent (% LCX) 0.00Rest Defect Extent (% LCX)0.00Rev. Defect Extent (% LCX)0.00 Stress Defect Extent (% RCA)0.00Rest Defect Extent (% RCA)0.00Rev. Defect Extent (% RCA)0.00 Stress Defect Extent (% PAPITO)0.00Rest Defect Extent (% PAPITO)0.00Rev. Defect Extent (% PAPITO)0.00 Other Information Quality:Good Risk Assessment: Low Risk Conclusion 1. No evidence of stress induced EKG changes. 2. Normal myocardial perfusion at stress/rest. 3. Low risk study 4. EF > 70%
--- NOTE | 2016-08-13 11:50 | PDOC ---
PULMONARY PROGRESS NOTES Subjective CTA with no PE still has left sided pain/ left shoulder Vitals Vital Signs Date Time Temp Pulse Resp B/P Pulse Ox O2 Delivery O2 Flow Rate FiO2 08/13/16 10:44 18 94 Room Air 08/13/16 09:50 93 137/82 08/13/16 09:44 4.0 08/13/16 07:30 97.8 97.8 General: Alert, No acute distress Lungs: Clear Cardiovascular: S1 Abdomen: Soft Neuro Exam: Alert Extremities: No Edema Labs Laboratory Tests Test 08/11/16 14:50 08/11/16 15:41 08/11/16 15:49 08/11/16 17:28 White Blood Count 7.3x10^3/uL (4.0-11.0) Red Blood Count 5.59x10^6/uL (4.30-5.70) Hemoglobin 15.7g/dL (13.0-17.5) Hematocrit 46.9% (39.0-53.0) Mean Corpuscular Volume 84fL (79-100) Mean Corpuscular Hemoglobin 28pg (25-35) Mean Corpuscular Hemoglobin Concent 33g/dL (31-37) Red Cell Distribution Width 14.0% (11.5-14.5) Platelet Count 181x10^3/uL (140-400) Neutrophils (%) (Auto) 60% (31-73) Lymphocytes (%) (Auto) 29% (24-48) Monocytes (%) (Auto) 7% (0-9) Eosinophils (%) (Auto) 3% (0-3) Basophils (%) (Auto) 1% (0-3) Neutrophils # (Auto) 4.4x10^3uL (1.8-7.7) Lymphocytes # (Auto) 2.1x10^3/uL (1.0-4.8) Monocytes # (Auto) 0.5x10^3/uL (0.0-1.1) Eosinophils # (Auto) 0.2x10^3/uL (0.0-0.7) Basophils # (Auto) 0.0x10^3/uL (0.0-0.2) Prothrombin Time 11.9SEC (11.7-14.0) Prothromb Time International Ratio 0.9 (0.8-1.1) Activated Partial Thromboplast Time 26SEC (24-38) D-Dimer (Leticia) 0.29ug/mlFEU (0.00-0.50) Sodium Level 135mmol/L (136-145) Potassium Level 4.0mmol/L (3.5-5.1) Chloride Level 101mmol/L (98-107) Carbon Dioxide Level 26mmol/L (21-32) Anion Gap 8 (6-14) Blood Urea Nitrogen 21mg/dL (8-26) Creatinine 1.2mg/dL (0.7-1.3) Estimated GFR (Cockcroft-Gault) 64.4 BUN/Creatinine Ratio 18 (6-20) Glucose Level 451mg/dL (70-99) Calcium Level 9.3mg/dL (8.5-10.1) Total Bilirubin 0.4mg/dL (0.2-1.0) Aspartate Amino Transf (AST/SGOT) 14U/L (15-37) Alanine Aminotransferase (ALT/SGPT) 29U/L (16-63) Alkaline Phosphatase 93U/L (46-116) Troponin I Quantitative < 0.017ng/mL (0.000-0.055) HN-Jvt-E-Type Natriuretic Peptide 11pg/mL (0-124) Total Protein 7.4g/dL (6.4-8.2) Albumin 3.5g/dL (3.4-5.0) Albumin/Globulin Ratio 0.9 (1.0-1.7) Lipase 254U/L (73-393) Ethyl Alcohol Level < 10mg/dL (0-10) Urine Opiates Screen Neg (NEG) Urine Methadone Screen Neg (NEG) Urine Barbiturates Neg (NEG) Urine Phencyclidine Screen Neg (NEG) Urine Amphetamine/Methamphetamine Neg (NEG) Urine Benzodiazepines Screen Neg (NEG) Urine Cocaine Screen Neg (NEG) Urine Cannabinoids Screen Neg (NEG) Urine Ethyl Alcohol Neg (NEG) Urine Collection Type Unknown Urine Color Yellow Urine Clarity Clear Urine pH 5.5 Urine Specific [place] >=1.030 Urine Protein Negativemg/dL (NEG-TRACE) Urine Glucose (UA) >=1000mg/dL (NEG) Urine Ketones (Stick) Negativemg/dL (NEG) Urine Blood Negative (NEG) Urine Nitrite Negative (NEG) Urine Bilirubin Negative (NEG) Urine Urobilinogen Dipstick 0.2mg/dL (0.2 mg/dL) Urine Leukocyte Esterase Negative (NEG) Urine RBC 0/HPF (0-2) Urine WBC 0/HPF (0-4) Urine Squamous Epithelial Cells Occ/LPF Urine Bacteria 0/HPF (0-FEW) Glucose (Fingerstick) 271mg/dL (70-99) Test 08/11/16 20:57 08/11/16 22:15 08/12/16 03:45 08/12/16 08:25 Glucose (Fingerstick) 223mg/dL (70-99) 187mg/dL (70-99) Troponin I Quantitative < 0.017ng/mL (0.000-0.055) < 0.017ng/mL (0.000-0.055) White Blood Count 7.1x10^3/uL (4.0-11.0) Red Blood Count 5.09x10^6/uL (4.30-5.70) Hemoglobin 14.6g/dL (13.0-17.5) Hematocrit 43.4% (39.0-53.0) Mean Corpuscular Volume 85fL (79-100) Mean Corpuscular Hemoglobin 29pg (25-35) Mean Corpuscular Hemoglobin Concent 34g/dL (31-37) Red Cell Distribution Width 14.0% (11.5-14.5) Platelet Count 168x10^3/uL (140-400) Neutrophils (%) (Auto) 46% (31-73) Lymphocytes (%) (Auto) 43% (24-48) Monocytes (%) (Auto) 6% (0-9) Eosinophils (%) (Auto) 4% (0-3) Basophils (%) (Auto) 1% (0-3) Neutrophils # (Auto) 3.2x10^3uL (1.8-7.7) Lymphocytes # (Auto) 3.1x10^3/uL (1.0-4.8) Monocytes # (Auto) 0.4x10^3/uL (0.0-1.1) Eosinophils # (Auto) 0.3x10^3/uL (0.0-0.7) Basophils # (Auto) 0.1x10^3/uL (0.0-0.2) Prothrombin Time 12.2SEC (11.7-14.0) Prothromb Time International Ratio 1.0 (0.8-1.1) Sodium Level 137mmol/L (136-145) Potassium Level 3.6mmol/L (3.5-5.1) Chloride Level 104mmol/L (98-107) Carbon Dioxide Level 23mmol/L (21-32) Anion Gap 10 (6-14) Blood Urea Nitrogen 19mg/dL (8-26) Creatinine 0.9mg/dL (0.7-1.3) Estimated GFR (Cockcroft-Gault) 89.7 Glucose Level 231mg/dL (70-99) Calcium Level 8.1mg/dL (8.5-10.1) Triglycerides Level 1443mg/dL (0-150) Cholesterol Level 225mg/dL (0-200) LDL Cholesterol, Calculated mg/dL (0-100) VLDL Cholesterol, Calculated 289mg/dL (0-40) Non-HDL Cholesterol Calculated 205mg/dL (0-129) HDL Cholesterol 20mg/dL (40-60) Cholesterol/HDL Ratio 11.3 Test 08/12/16 11:53 08/12/16 16:50 08/12/16 20:34 08/13/16 03:30 Glucose (Fingerstick) 185mg/dL (70-99) 123mg/dL (70-99) 167mg/dL (70-99) Prothrombin Time 12.8SEC (11.7-14.0) Prothromb Time International Ratio 1.0 (0.8-1.1) Test 08/13/16 08:11 Glucose (Fingerstick) 173mg/dL (70-99) Laboratory Tests Test 08/12/16 11:53 08/12/16 16:50 08/12/16 20:34 08/13/16 03:30 Glucose (Fingerstick) 185mg/dL (70-99) 123mg/dL (70-99) 167mg/dL (70-99) Prothrombin Time 12.8SEC (11.7-14.0) Prothromb Time International Ratio 1.0 (0.8-1.1) Test 08/13/16 08:11 Glucose (Fingerstick) 173mg/dL (70-99) Medications Active Scripts Medications Dose Route/Sig Days Date Category Lantus (Insulin Glargine,Hum.rec.anlog) 100 Unit/1 Ml Vial 35 Unit SQ HS 08/11/16 Reported Victoza 2-Jermaine (Liraglutide) 0.6 Mg/0.1 Ml Pen.injctr 1.8 Mg SQ 08/11/16 Reported Invokana (Canagliflozin) 100 Mg Tablet 100 Mg PO DAILYAC 08/11/16 Reported Atorvastatin Calcium 80 Mg Tablet 1 Tab PO DAILY 08/11/16 Reported Fenofibrate 160 Mg Tablet 1 Tab PO DAILY 08/11/16 Reported Escitalopram Oxalate 20 Mg Tablet 1 Tab PO DAILY 08/11/16 Reported Hydrocodone-Apap 5-325 (Hydrocodone Bit/Acetaminophen) 1 Each Tablet 2 Tab PO PRN Q4-6HRS PRN 02/22/16 Rx Hydrocodone-Apap 5-325 (Hydrocodone Bit/Acetaminophen) 1 Each Tablet 2 Tab PO Q4-6HRS PRN 12/01/15 Rx Impression . 1. Left-sided chest pain with radiation to the left shoulder. I was not convinced by looking at the initial CTA chest that he has a reported clot in the tertiary branch of the right lower lobe and also in the right upper lobe.repeat CTA chest with no PE. The symptoms of left-sided chest pain and shoulder may point towards an anginal pain. 2. No significant history of tobacco use. 3. No evidence of DVT in the lower extremity Dopplers. 4. History of traumatic brain injury. Plan . 1. No need for AC pulmonary moore 2. Repeat CTA chest neg for PE 3. Follow cardiology recommendation. Consider cath/ has risk factors 4. echocardiogram report. 5. follow stress test results 6. wean off oxygen 7. Discussed with the patient and his . Also, with Cardiology nurse practitioner. BRYCE RAIZA MD August 13, 2016 11:50
[2016-08-13] MEDS: ALBUTEROL SULFATE 2.5 MG/3 ML NEBU. NEB SCH ×3 (13:45→20:02)
--- NOTE | 2016-08-13 13:53 | PDOC ---
WOJCIECH MENSAH RESEARCH CONSULTANT 08/13/16 1352: CARDIO Progress Notes Date and Time Date of Service 08/13/16 Time of Evaluation 1154 Subjective Subjective: No Chest Pain (associated with deep breath) Vitals Vitals Vital Signs Date Time Temp Pulse Resp B/P Pulse Ox O2 Delivery O2 Flow Rate FiO2 08/13/16 10:44 18 94 Room Air 08/13/16 09:50 93 137/82 08/13/16 09:44 4.0 08/13/16 07:30 97.8 97.8 Weight Weight [ ] Input and Output Intake and Output Intake and Output 08/13/16 07:00 Intake Total 1640 ml Output Total 1300 ml Balance 340 ml Intake Oral 1640 ml Output Urine Total 1300 ml # Voids 3 Laboratory Labs Laboratory Tests Test 08/12/16 16:50 08/12/16 20:34 08/13/16 03:30 08/13/16 08:11 Glucose (Fingerstick) 123mg/dL (70-99) 167mg/dL (70-99) 173mg/dL (70-99) Prothrombin Time 12.8SEC (11.7-14.0) Prothromb Time International Ratio 1.0 (0.8-1.1) Test 08/13/16 12:49 Glucose (Fingerstick) 168mg/dL (70-99) Physical Exam HEENT: Neck Supple W Full Motion Chest: Symmetric LUNGS: Clear to Auscultation Heart: S1S2, RRR Abdomen: Soft N/T Extremities: No Edema Neurology: alert, oriented, follow commands Assessment Assessment 1. Chest pain, atypical troponin series normal- AMI ruled out echo with preserved LV function MPI without evidence of ischemia continues to have intermittent CP; worse with deep breath. 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 R/b/a discussed with patient and is agreeable. NPO after MN 2. Hypertension controlled 4. Dyslipidemia high-dose statin and fenofibrate 5. Diabetes per PCP KAYLEE GIFFORD MD 08/14/16 0909: CARDIO Progress Notes Assessment Assessment Patient seen and examined 08/13/16. Agree with IRONING WORKER's assessment and plan. Plan for right and left heart catheterization tomorrow to evaluate refractory chest pain and hypoxia. WOJCIECH MENSAH APRN August 13, 2016 13:52 KAYLEE GIFFORD MD August 14, 2016 09:09
--- NOTE | 2016-08-13 13:59 | PDOC ---
PROGRESS NOTES Chief Complaint Chief Complaint 1. PE 2. Chest pain 3. Type 2 diabetes mellitus 4. Head injury in 2012 5. Back pain 6. Falls 7. Cholecystectomy 8. ACL and rotator cuff repair. History of Present Illness History of Present Illness Examined patient in hallway when being transported to nuclear medicine. Patient in no distress. Discussed plan with . Continuing cardiac workup. Vitals Vitals Vital Signs Date Time Temp Pulse Resp B/P Pulse Ox O2 Delivery O2 Flow Rate FiO2 08/13/16 11:00 97.6 85 20 115/80 96 Room Air 97.6 08/13/16 09:44 4.0 Physical Exam General: Alert, Oriented X3, Cooperative, No acute distress Heart: Regular rate, Normal S1, Normal S2, Other (tele: SR) Lungs: Clear Abdomen: Soft, No tenderness Extremities: No edema, Normal pulses Skin: No breakdown, No significant lesion Labs LABS Laboratory Tests Test 08/12/16 16:50 08/12/16 20:34 08/13/16 03:30 08/13/16 08:11 Glucose (Fingerstick) 123mg/dL (70-99) 167mg/dL (70-99) 173mg/dL (70-99) Prothrombin Time 12.8SEC (11.7-14.0) Prothromb Time International Ratio 1.0 (0.8-1.1) Test 08/13/16 12:49 Glucose (Fingerstick) 168mg/dL (70-99) Review of Systems Review of Systems No vomiting No fever/chills No constipation/diarrhea Assessment and Plan Assessmemt and Plan Problems Medical Problems: (1) Chest pain at rest Status: Acute (2) Hypoxia Status: Acute (3) Tachycardia Status: Acute 4. PE 5. Type 2 diabetes mellitus 6. Head injury in 2012 7. Back pain 8. Falls 9. Cholecystectomy 10. ACL and rotator cuff repair. Plan: -Continue current medications and adjust accordingly as needed -Continue anticoagulation. -Continue to consult cardiology -Continue cardiac monitoring -Nuclear med scan unremarkable -1. No evidence of stress induced EKG changes. -2. Normal myocardial perfusion at stress/rest. -3. Low risk study -4. EF > 70% -Consider possible sliding insulin scale if needed due to fluctuating glucose lvls -Involve PT/OT Problems: Comment Review of Relevant I have reviewed the following items ashwin (where applicable) has been applied. Labs Laboratory Tests Test 08/11/16 14:50 08/11/16 15:41 08/11/16 15:49 08/11/16 17:28 White Blood Count 7.3x10^3/uL (4.0-11.0) Red Blood Count 5.59x10^6/uL (4.30-5.70) Hemoglobin 15.7g/dL (13.0-17.5) Hematocrit 46.9% (39.0-53.0) Mean Corpuscular Volume 84fL (79-100) Mean Corpuscular Hemoglobin 28pg (25-35) Mean Corpuscular Hemoglobin Concent 33g/dL (31-37) Red Cell Distribution Width 14.0% (11.5-14.5) Platelet Count 181x10^3/uL (140-400) Neutrophils (%) (Auto) 60% (31-73) Lymphocytes (%) (Auto) 29% (24-48) Monocytes (%) (Auto) 7% (0-9) Eosinophils (%) (Auto) 3% (0-3) Basophils (%) (Auto) 1% (0-3) Neutrophils # (Auto) 4.4x10^3uL (1.8-7.7) Lymphocytes # (Auto) 2.1x10^3/uL (1.0-4.8) Monocytes # (Auto) 0.5x10^3/uL (0.0-1.1) Eosinophils # (Auto) 0.2x10^3/uL (0.0-0.7) Basophils # (Auto) 0.0x10^3/uL (0.0-0.2) Prothrombin Time 11.9SEC (11.7-14.0) Prothromb Time International Ratio 0.9 (0.8-1.1) Activated Partial Thromboplast Time 26SEC (24-38) D-Dimer (Leticia) 0.29ug/mlFEU (0.00-0.50) Sodium Level 135mmol/L (136-145) Potassium Level 4.0mmol/L (3.5-5.1) Chloride Level 101mmol/L (98-107) Carbon Dioxide Level 26mmol/L (21-32) Anion Gap 8 (6-14) Blood Urea Nitrogen 21mg/dL (8-26) Creatinine 1.2mg/dL (0.7-1.3) Estimated GFR (Cockcroft-Gault) 64.4 BUN/Creatinine Ratio 18 (6-20) Glucose Level 451mg/dL (70-99) Calcium Level 9.3mg/dL (8.5-10.1) Total Bilirubin 0.4mg/dL (0.2-1.0) Aspartate Amino Transf (AST/SGOT) 14U/L (15-37) Alanine Aminotransferase (ALT/SGPT) 29U/L (16-63) Alkaline Phosphatase 93U/L (46-116) Troponin I Quantitative < 0.017ng/mL (0.000-0.055) BD-Tec-J-Type Natriuretic Peptide 11pg/mL (0-124) Total Protein 7.4g/dL (6.4-8.2) Albumin 3.5g/dL (3.4-5.0) Albumin/Globulin Ratio 0.9 (1.0-1.7) Lipase 254U/L (73-393) Ethyl Alcohol Level < 10mg/dL (0-10) Urine Opiates Screen Neg (NEG) Urine Methadone Screen Neg (NEG) Urine Barbiturates Neg (NEG) Urine Phencyclidine Screen Neg (NEG) Urine Amphetamine/Methamphetamine Neg (NEG) Urine Benzodiazepines Screen Neg (NEG) Urine Cocaine Screen Neg (NEG) Urine Cannabinoids Screen Neg (NEG) Urine Ethyl Alcohol Neg (NEG) Urine Collection Type Unknown Urine Color Yellow Urine Clarity Clear Urine pH 5.5 Urine Specific [place] >=1.030 Urine Protein Negativemg/dL (NEG-TRACE) Urine Glucose (UA) >=1000mg/dL (NEG) Urine Ketones (Stick) Negativemg/dL (NEG) Urine Blood Negative (NEG) Urine Nitrite Negative (NEG) Urine Bilirubin Negative (NEG) Urine Urobilinogen Dipstick 0.2mg/dL (0.2 mg/dL) Urine Leukocyte Esterase Negative (NEG) Urine RBC 0/HPF (0-2) Urine WBC 0/HPF (0-4) Urine Squamous Epithelial Cells Occ/LPF Urine Bacteria 0/HPF (0-FEW) Glucose (Fingerstick) 271mg/dL (70-99) Test 08/11/16 20:57 08/11/16 22:15 08/12/16 03:45 08/12/16 08:25 Glucose (Fingerstick) 223mg/dL (70-99) 187mg/dL (70-99) Troponin I Quantitative < 0.017ng/mL (0.000-0.055) < 0.017ng/mL (0.000-0.055) White Blood Count 7.1x10^3/uL (4.0-11.0) Red Blood Count 5.09x10^6/uL (4.30-5.70) Hemoglobin 14.6g/dL (13.0-17.5) Hematocrit 43.4% (39.0-53.0) Mean Corpuscular Volume 85fL (79-100) Mean Corpuscular Hemoglobin 29pg (25-35) Mean Corpuscular Hemoglobin Concent 34g/dL (31-37) Red Cell Distribution Width 14.0% (11.5-14.5) Platelet Count 168x10^3/uL (140-400) Neutrophils (%) (Auto) 46% (31-73) Lymphocytes (%) (Auto) 43% (24-48) Monocytes (%) (Auto) 6% (0-9) Eosinophils (%) (Auto) 4% (0-3) Basophils (%) (Auto) 1% (0-3) Neutrophils # (Auto) 3.2x10^3uL (1.8-7.7) Lymphocytes # (Auto) 3.1x10^3/uL (1.0-4.8) Monocytes # (Auto) 0.4x10^3/uL (0.0-1.1) Eosinophils # (Auto) 0.3x10^3/uL (0.0-0.7) Basophils # (Auto) 0.1x10^3/uL (0.0-0.2) Prothrombin Time 12.2SEC (11.7-14.0) Prothromb Time International Ratio 1.0 (0.8-1.1) Sodium Level 137mmol/L (136-145) Potassium Level 3.6mmol/L (3.5-5.1) Chloride Level 104mmol/L (98-107) Carbon Dioxide Level 23mmol/L (21-32) Anion Gap 10 (6-14) Blood Urea Nitrogen 19mg/dL (8-26) Creatinine 0.9mg/dL (0.7-1.3) Estimated GFR (Cockcroft-Gault) 89.7 Glucose Level 231mg/dL (70-99) Calcium Level 8.1mg/dL (8.5-10.1) Triglycerides Level 1443mg/dL (0-150) Cholesterol Level 225mg/dL (0-200) LDL Cholesterol, Calculated mg/dL (0-100) VLDL Cholesterol, Calculated 289mg/dL (0-40) Non-HDL Cholesterol Calculated 205mg/dL (0-129) HDL Cholesterol 20mg/dL (40-60) Cholesterol/HDL Ratio 11.3 Test 08/12/16 11:53 08/12/16 16:50 08/12/16 20:34 08/13/16 03:30 Glucose (Fingerstick) 185mg/dL (70-99) 123mg/dL (70-99) 167mg/dL (70-99) Prothrombin Time 12.8SEC (11.7-14.0) Prothromb Time International Ratio 1.0 (0.8-1.1) Test 08/13/16 08:11 08/13/16 12:49 Glucose (Fingerstick) 173mg/dL (70-99) 168mg/dL (70-99) Laboratory Tests Test 08/12/16 16:50 08/12/16 20:34 08/13/16 03:30 08/13/16 08:11 Glucose (Fingerstick) 123mg/dL (70-99) 167mg/dL (70-99) 173mg/dL (70-99) Prothrombin Time 12.8SEC (11.7-14.0) Prothromb Time International Ratio 1.0 (0.8-1.1) Test 08/13/16 12:49 Glucose (Fingerstick) 168mg/dL (70-99) Medications Current Medications Nitroglycerin (Nitrostat) 0.4 mg PRN Q5MIN PRN SL CHEST PAIN Last administered on 08/13/16 09:50; Start 08/11/16 at 15:15 Aspirin (Ecotrin) 325 mg 1X ONCE PO Last administered on 08/11/16 15:26; Start 08/11/16 at 15:15; Stop 08/11/16 at 15:16; Status DC Morphine Sulfate 5 mg 1X ONCE IV Last administered on 08/11/16 15:35; Start 08/11/16 at 15:15; Stop 08/11/16 at 15:16; Status DC Ondansetron HCl (Zofran) 4 mg 1X ONCE IV Last administered on 08/11/16 15:17 ; Start 08/11/16 at 15:15; Stop 08/11/16 at 15:16; Status DC Aspirin (Amy Aspirin) 325 mg STK-MED ONCE .ROUTE ; Start 08/11/16 at 15:13; Stop 08/11/16 at 15:14; Status DC Enoxaparin Sodium (Lovenox 100mg Syringe) 95 mg 1X ONCE SQ Last administered on 08/11/16 15:35; Start 08/11/16 at 15:30; Stop 08/11/16 at 15:31; Status DC Albuterol/ Ipratropium 3 ml 3 ml 1X ONCE NEB Last administered on 08/11/16 15 :48; Start 08/11/16 at 15:30; Stop 08/11/16 at 15:32; Status DC Sodium Chloride (Iv Sodium Chloride 0.9% 1000ml Bag) 1,000 ml @ 0 mls/hr 1X ONCE IV ; Start 08/11/16 at 16:00; Stop 08/11/16 at 16:01; Status DC Insulin Human Regular (Novolin R Vial) 10 unit 1X ONCE IV Last administered on 08/11/16 16:22; Start 08/11/16 at 16:00; Stop 08/11/16 at 16:01; Status DC Ondansetron HCl (Zofran) 4 mg PRN Q8HRS PRN IV NAUSEA/VOMITING; Start 08/11/16 at 16:15; Stop 08/12/16 at 16:14; Status DC Fentanyl Citrate 50 mcg 50 mcg PRN Q2HR PRN IV PAIN Last administered on 22:48; Start 08/11/16 at 16:15; Stop 08/12/16 at 16:14; Status DC Sodium Chloride (Iv Sodium Chloride 0.9% 1000ml Bag) 1,000 ml @ 1,000 mls/hr 1X ONCE IV Last administered on 08/11/16 16:23; Start 08/11/16 at 16:15; Stop 08/11/16 at 17:14; Status DC Iohexol (Omnipaque 300 Mg/ml) 75 ml 1X ONCE IV Last administered on 08/11/16 16:56; Start 08/11/16 at 16:45; Stop 08/11/16 at 16:46; Status DC Enoxaparin Sodium (Lovenox 100mg Syringe) 100 mg Q12HR SQ Last administered on 08/12/16 08:48; Start 08/12/16 at 09:00; Stop 08/12/16 at 15:51; Status DC Enoxaparin Sodium (Lovenox 30mg Syringe) 10 mg 1X ONCE SQ Last administered on 08/11/16 18:34; Start 08/11/16 at 17:45; Stop 08/11/16 at 17:46; Status DC Acetaminophen (Tylenol) 325 mg PRN Q6HRS PRN PO MILD PAIN / TEMP; Start at 17:45 Acetaminophen/ Hydrocodone Bitart (Lortab 5/325) 1 tab PRN Q6HRS PRN PO MODERATE TO SEVERE PAIN Last administered on 08/13/16 09:44; Start 08/11/16 at 17:45 Hydralazine HCl (Apresoline) 10 mg PRN Q4HRS PRN IVP ELEVATED BP, SEE COMMENTS ; Start 08/11/16 at 17:45 Ondansetron HCl (Zofran) 4 mg PRN Q8HRS PRN IV NAUSEA/VOMITING Last administered on 08/13/16 09:44; Start 08/11/16 at 17:45 Albuterol Sulfate (Ventolin Neb Soln) 2.5 mg PRN Q4HRS PRN NEB SHORTNESS OF BREATH; Start 08/11/16 at 17:45 Insulin Aspart (Novolog) 0-9 UNITS TIDWMEALS SQ ; Start 08/12/16 at 08:00 Dextrose (Dextrose 50%-Water Syringe) 12.5 gm PRN Q15MIN PRN IV SEE COMMENTS; Start 08/11/16 at 17:45 Insulin Aspart (Novolog) 10 units 1X ONCE SQ Last administered on 08/11/16 18 :11; Start 08/11/16 at 18:15; Stop 08/11/16 at 18:16; Status DC Atorvastatin Calcium (Lipitor) 80 mg QHS PO Last administered on 08/12/16 21:29 ; Start 08/12/16 at 21:00 Non-Formulary Medication 100 mg DAILYAC PO Last administered on 08/13/16 09:43 ; Start 08/12/16 at 07:30 Escitalopram Oxalate (Lexapro) 20 mg DAILY PO Last administered on 08/13/16 09: 44; Start 08/12/16 at 09:00 Fenofibrate (Lofibra) 134 mg DAILY PO Last administered on 08/13/16 09:44; Start 08/12/16 at 09:00 Insulin Detemir (Levemir) 35 units QHS SQ ; Start 08/11/16 at 22:00; Status Cancel Non-Formulary Medication 1 ea QHS SQ Last administered on 08/12/16 21:39; Start 08/12/16 at 21:00 Non-Formulary Medication 1 ea HS SQ Last administered on 08/12/16 21:33; Start 08/11/16 at 22:00 Warfarin Sodium (Coumadin Per Pharmacy) 1 each PRN DAILY PRN MC SEE COMMENTS Last administered on 08/12/16 14:38; Start 08/11/16 at 22:30; Stop 08/12/16 at 15 :27; Status DC Warfarin Sodium (Coumadin) 7.5 mg 1X ONCE PO Last administered on 08/12/16 00: 25; Start 08/11/16 at 23:00; Stop 08/12/16 at 15:27; Status DC Iohexol (Omnipaque 300 Mg/ml) 75 ml 1X ONCE IV Last administered on 08/12/16 13:21; Start 08/12/16 at 12:15; Stop 08/12/16 at 12:16; Status DC Info (Anti-Coagulation Monitoring By Pharmacy) 1 each PRN DAILY PRN MC SEE COMMENTS Last administered on 08/12/16 14:40; Start 08/12/16 at 13:45 Warfarin Sodium (Coumadin) 7.5 mg 1X WARF ONCE PO ; Start 08/12/16 at 16:00; Stop 08/12/16 at 16:01; Status Cancel Enoxaparin Sodium (Lovenox 40mg Syringe) 40 mg Q24H SQ Last administered on 08/13 09:46; Start 08/13/16 at 09:00 Regadenoson (Lexiscan) 0.4 mg 1X ONCE IV Last administered on 08/13/16 08:58; Start 08/13/16 at 08:15; Stop 08/13/16 at 08:16; Status DC Albuterol Sulfate (Ventolin Neb Soln) 2.5 mg RTQID NEB ; Start 08/13/16 at 13:45 Active Scripts Active Hydrocodone-Apap 5-325 (Hydrocodone Bit/Acetaminophen) 1 Each Tablet 2 Tab PO PRN Q4-6HRS PRN Hydrocodone-Apap 5-325 (Hydrocodone Bit/Acetaminophen) 1 Each Tablet 2 Tab PO Q4-6HRS PRN Reported Lantus (Insulin Glargine,Hum.rec.anlog) 100 Unit/1 Ml Vial 35 Unit SQ HS Victoza 2-Jermaine (Liraglutide) 0.6 Mg/0.1 Ml Pen.injctr 1.8 Mg SQ Invokana (Canagliflozin) 100 Mg Tablet 100 Mg PO DAILYAC Atorvastatin Calcium 80 Mg Tablet 1 Tab PO DAILY Fenofibrate 160 Mg Tablet 1 Tab PO DAILY Escitalopram Oxalate 20 Mg Tablet 1 Tab PO DAILY Vitals/I & O Vital Sign - Last 24 Hours 08/12/16 08/12/16 08/12/16 08/12/16 15:09 19:00 19:20 20:00 Temp 97.4 97.3 97.4 97.3 Pulse 92 92 Resp 24 19 B/P 128/96 122/89 Pulse Ox 94 94 O2 Delivery Nasal Cannula Nasal Cannula Nasal Cannula Nasal Cannula O2 Flow Rate 4.0 4.0 08/12/16 08/12/16 08/13/16 08/13/16 20:25 23:00 03:00 07:30 Temp 97.6 97.5 97.8 97.6 97.5 97.8 Pulse 96 90 93 Resp 18 19 19 B/P 130/91 101/62 126/83 Pulse Ox 94 97 94 O2 Delivery Nasal Cannula Nasal Cannula Room Air O2 Flow Rate 4.0 08/13/16 08/13/16 08/13/16 08/13/16 09:44 09:50 10:44 11:00 Temp 97.6 97.6 Pulse 93 85 Resp 18 20 B/P 137/82 115/80 Pulse Ox 94 94 96 O2 Delivery Nasal Cannula Room Air Room Air O2 Flow Rate 4.0 Intake and Output 08/12/16 08/12/16 08/13/16 15:00 23:00 07:00 Intake Total 1280 ml 360 ml Output Total 1300 ml Balance -20 ml 360 ml MARCI HERNANDEZ III DO August 13, 2016 13:59
[2016-08-13 15:00] VITALS: BP 118/82
[2016-08-13] MEDS: LISINOPRIL 2.5 MG TABLET PO SCH (15:13)
[2016-08-13 19:57] VITALS: BP 119/75
[2016-08-13] MEDS: ATORVASTATIN CALCIUM 40 MG TABLET. PO SCH (20:22)
[2016-08-13] MEDS: METOPROLOL TART IMMED RELEASE 25 MG TABLET. PO SCH (20:23)
[2016-08-13] MEDS: VICTOZA SQ SCH (20:24)
[2016-08-13] MEDS: LANTUS SQ SCH (20:24)
[2016-08-13 23:59] VITALS: BP 108/87
[2016-08-14] VITALS (13 sets, daily range): BP systolic 105–151; BP diastolic 20–92
[2016-08-14 05:50] LABS: BASO % 1 % (0-3); EOS % 3 % (0-3); HEMATOCRIT 44.4 % (39.0-53.0); HEMOGLOBIN 14.9 g/dL (13.0-17.5); LYMPH % 30 % (24-48); MEAN CORPUSCULAR HEMOGLOBIN 28 pg (25-35); MEAN CORPUSCULAR HGB CONC 34 g/dL (31-37); MEAN CORPUSCULAR VOLUME 83 fL (79-100); MONO % 9 % (0-9); NEUT % 59 % (31-73); PLATELET COUNT 190 x10^3/uL (140-400); RED BLOOD COUNT 5.32 x10^6/uL (4.30-5.70); RED CELL DISTRIBUTION WIDTH 14.2 % (11.5-14.5); WHITE BLOOD COUNT 6.6 x10^3/uL (4.0-11.0)
[2016-08-14 05:58] LABS: CREATININE 0.9 mg/dL (0.7-1.3); GFR 89.7; POTASSIUM 3.8 mmol/L (3.5-5.1)
[2016-08-14] MEDS: ALBUTEROL SULFATE 2.5 MG/3 ML NEBU. NEB SCH ×4 (07:35→20:27)
[2016-08-14] MEDS: INSULIN ASPART 300 UNITS/3 ML INSULN.PEN SQ SCH ×3 (08:00→16:52)
[2016-08-14] MEDS: ENOXAPARIN 40 MG/0.4 ML SYRINGE. SQ SCH (09:00)
[2016-08-14] MEDS: LISINOPRIL 2.5 MG TABLET PO SCH (09:00)
[2016-08-14] MEDS: METOPROLOL TART IMMED RELEASE 25 MG TABLET. PO SCH ×2 (09:00→21:14)
[2016-08-14] MEDS: FENOFIBRATE,MICRONIZED 134 MG CAPSULE PO SCH (09:10)
[2016-08-14] MEDS: NON FORMULARY ITEM (Canagliflozin (Invokana) 100 MG) PO SCH (09:10)
[2016-08-14] MEDS: ESCITALOPRAM 10 MG TABLET. PO SCH (09:11)
[2016-08-14] MEDS ORDERED: LIDOCAINE 2% 20 ML VIAL. ONE (10:23)
[2016-08-14] MEDS ORDERED: IOHEXOL 350 MG/ML 100 ML VIAL. ONE (10:23)
--- NOTE | 2016-08-14 11:05 | PDOC ---
MODERATE SEDATION ASSESSMENT RISKS/ALTERNATIVES Risks/Alternatives Risks and alternatives of this type of sedation and procedure discussed with: RISK/ALTERNATIVES: Patient H & P ON CHART H & P H & P on chart and reviewed for co-morbid conditions and appropriate labs. H&P ON CHART: Yes STATUS PREG STATUS ASSESSED: N/A MEDS/ALLERGIES REVIEWED Meds/Allergies Reviewed Medications and Allergies including time and route of recently administered narcotics and sedatives. MEDS/ALLERGIES REVIEWED: Yes ASA RATING ASA RATING: II AIRWAY ASSESSMENT Airway Assessment Airway patency, oral function limitations, presence of caps, crowns, dentures, partials, and ability to extend neck assessed. AIRWAY ASSESSMENT: Yes MALLAMPATI SCORE MALLAMPATI SCORE: II PRE-SEDATION ASSESSMENT PRE-SEDATION ASSESSMENT: Yes JEANETTE MOONEY MD August 14, 2016 11:05
--- NOTE | 2016-08-14 11:07 | PDOC ---
PULMONARY PROGRESS NOTES Subjective CTA with no PE still has left sided pain/ left shoulder Vitals Vital Signs Date Time Temp Pulse Resp B/P Pulse Ox O2 Delivery O2 Flow Rate FiO2 08/14/16 08:00 Nasal Cannula 2.0 08/14/16 07:37 91 08/14/16 07:00 97.8 104 20 116/88 97.8 General: Alert, No acute distress Lungs: Clear Cardiovascular: S1 Abdomen: Soft Neuro Exam: Alert Extremities: No Edema Labs Laboratory Tests Test 08/12/16 11:53 08/12/16 16:50 08/12/16 20:34 08/13/16 03:30 Glucose (Fingerstick) 185mg/dL (70-99) 123mg/dL (70-99) 167mg/dL (70-99) Prothrombin Time 12.8SEC (11.7-14.0) Prothromb Time International Ratio 1.0 (0.8-1.1) Test 08/13/16 08:11 08/13/16 12:49 08/13/16 18:01 08/13/16 20:20 Glucose (Fingerstick) 173mg/dL (70-99) 168mg/dL (70-99) 98mg/dL (70-99) 240mg/dL (70-99) Test 08/14/16 05:35 08/14/16 08:30 White Blood Count 6.6x10^3/uL (4.0-11.0) Red Blood Count 5.32x10^6/uL (4.30-5.70) Hemoglobin 14.9g/dL (13.0-17.5) Hematocrit 44.4% (39.0-53.0) Mean Corpuscular Volume 83fL (79-100) Mean Corpuscular Hemoglobin 28pg (25-35) Mean Corpuscular Hemoglobin Concent 34g/dL (31-37) Red Cell Distribution Width 14.2% (11.5-14.5) Platelet Count 190x10^3/uL (140-400) Neutrophils (%) (Auto) 59% (31-73) Lymphocytes (%) (Auto) 30% (24-48) Monocytes (%) (Auto) 9% (0-9) Eosinophils (%) (Auto) 3% (0-3) Basophils (%) (Auto) 1% (0-3) Neutrophils # (Auto) 3.9x10^3uL (1.8-7.7) Lymphocytes # (Auto) 2.0x10^3/uL (1.0-4.8) Monocytes # (Auto) 0.6x10^3/uL (0.0-1.1) Eosinophils # (Auto) 0.2x10^3/uL (0.0-0.7) Basophils # (Auto) 0.0x10^3/uL (0.0-0.2) Prothrombin Time 13.0SEC (11.7-14.0) Prothromb Time International Ratio 1.0 (0.8-1.1) Sodium Level 141mmol/L (136-145) Potassium Level 3.8mmol/L (3.5-5.1) Chloride Level 106mmol/L (98-107) Carbon Dioxide Level 30mmol/L (21-32) Anion Gap 5 (6-14) Blood Urea Nitrogen 19mg/dL (8-26) Creatinine 0.9mg/dL (0.7-1.3) Estimated GFR (Cockcroft-Gault) 89.7 Glucose Level 115mg/dL (70-99) Calcium Level 9.0mg/dL (8.5-10.1) Glucose (Fingerstick) 135mg/dL (70-99) Laboratory Tests Test 08/13/16 12:49 08/13/16 18:01 08/13/16 20:20 08/14/16 05:35 Glucose (Fingerstick) 168mg/dL (70-99) 98mg/dL (70-99) 240mg/dL (70-99) White Blood Count 6.6x10^3/uL (4.0-11.0) Red Blood Count 5.32x10^6/uL (4.30-5.70) Hemoglobin 14.9g/dL (13.0-17.5) Hematocrit 44.4% (39.0-53.0) Mean Corpuscular Volume 83fL (79-100) Mean Corpuscular Hemoglobin 28pg (25-35) Mean Corpuscular Hemoglobin Concent 34g/dL (31-37) Red Cell Distribution Width 14.2% (11.5-14.5) Platelet Count 190x10^3/uL (140-400) Neutrophils (%) (Auto) 59% (31-73) Lymphocytes (%) (Auto) 30% (24-48) Monocytes (%) (Auto) 9% (0-9) Eosinophils (%) (Auto) 3% (0-3) Basophils (%) (Auto) 1% (0-3) Neutrophils # (Auto) 3.9x10^3uL (1.8-7.7) Lymphocytes # (Auto) 2.0x10^3/uL (1.0-4.8) Monocytes # (Auto) 0.6x10^3/uL (0.0-1.1) Eosinophils # (Auto) 0.2x10^3/uL (0.0-0.7) Basophils # (Auto) 0.0x10^3/uL (0.0-0.2) Prothrombin Time 13.0SEC (11.7-14.0) Prothromb Time International Ratio 1.0 (0.8-1.1) Sodium Level 141mmol/L (136-145) Potassium Level 3.8mmol/L (3.5-5.1) Chloride Level 106mmol/L (98-107) Carbon Dioxide Level 30mmol/L (21-32) Anion Gap 5 (6-14) Blood Urea Nitrogen 19mg/dL (8-26) Creatinine 0.9mg/dL (0.7-1.3) Estimated GFR (Cockcroft-Gault) 89.7 Glucose Level 115mg/dL (70-99) Calcium Level 9.0mg/dL (8.5-10.1) Test 08/14/16 08:30 Glucose (Fingerstick) 135mg/dL (70-99) Medications Active Scripts Medications Dose Route/Sig Days Date Category Lantus (Insulin Glargine,Hum.rec.anlog) 100 Unit/1 Ml Vial 35 Unit SQ HS 08/11/16 Reported Victoza 2-Jermaine (Liraglutide) 0.6 Mg/0.1 Ml Pen.injctr 1.8 Mg SQ 08/11/16 Reported Invokana (Canagliflozin) 100 Mg Tablet 100 Mg PO DAILYAC 08/11/16 Reported Atorvastatin Calcium 80 Mg Tablet 1 Tab PO DAILY 08/11/16 Reported Fenofibrate 160 Mg Tablet 1 Tab PO DAILY 08/11/16 Reported Escitalopram Oxalate 20 Mg Tablet 1 Tab PO DAILY 08/11/16 Reported Hydrocodone-Apap 5-325 (Hydrocodone Bit/Acetaminophen) 1 Each Tablet 2 Tab PO PRN Q4-6HRS PRN 02/22/16 Rx Hydrocodone-Apap 5-325 (Hydrocodone Bit/Acetaminophen) 1 Each Tablet 2 Tab PO Q4-6HRS PRN 12/01/15 Rx Impression . 1. Left-sided chest pain with radiation to the left shoulder. I was not convinced by looking at the initial CTA chest with reported clot in the tertiary branch of the right lower lobe and also in the right upper lobe. repeat CTA chest with no PE. The symptoms of left-sided chest pain and shoulder may point towards an anginal pain vs pleurisy 2. No significant history of tobacco use. 3. No evidence of DVT in the lower extremity Dopplers. 4. History of traumatic brain injury. Plan . 1. No need for AC pulmonary moore 2. Repeat CTA chest neg for PE 3. d/w cardiology. right/left heart cath today to r/o CAD, and any shunt (mild hypoxia persist) 4. echocardiogram with no pulmonary HTN 5. Neg stress test 6. off oxygen 7. Discussed with the patient and his . Also, with Cardiology BRYCE ARIZA MD August 14, 2016 11:07
[2016-08-14] MEDS ORDERED: LIDOCAINE 2% 20 ML VIAL. IJ ONE (11:30)
[2016-08-14] MEDS ORDERED: IOHEXOL 350 MG/ML 100 ML VIAL. IART ONE (11:30)
[2016-08-14] MEDS ORDERED: fentaNYL PF VIAL 100 MCG/2 ML VIAL IV ONE (11:30)
[2016-08-14] MEDS ORDERED: MIDAZOLAM HCL/PF 5 MG/5 ML VIAL. IV ONE (11:30)
--- NOTE | 2016-08-14 14:05 | CARD ---
APPROVED REPORT Procedures Left heart catheterization. Left ventriculogram. Selective coronary angiogram. Aortic root injection. Right heart catheterization. The patient is a 50-year-old male with episodes of increasing chest pain. Additionally the patient lima s hypoxia and dyspnea on exertion. Heart catheterization was recommended to evaluate right-sided pres sures as well as the patient's coronaries in the setting of recurrent chest pain. Risks and benefits were discussed. The patient agreed to proceed. After informed consent was obtained the patient was brought to the heart catheterization lab. The are a of the right femoral artery and vein were prepared in the usual manner with Betadine, sterile drapi ng and local anesthetic. An 18-gauge needle was used to enter the right femoral vein, a wire placed a nd an 8 [place]ic sheath placed over the wire. An 18-gauge needle was then used to enter the right femor al artery, a wire placed and a 6 [place]ic sheath placed over the wire. Using a J-wire, a 6 [place]ic JL4 d iagnostic catheter was advanced and used for sequential injections of the left coronary system. A 6 F rench Carlos right diagnostic catheter was advanced and used for sequential injections of the right coronary artery. A pigtail catheter was advanced the ascending aorta and then the left ventricle. A 30 LEMONS left ventriculogram was performed. Pullback pressures were measured. A 30 [place] aortic root in jection was performed. This catheter was then removed from the patient. A [place]-Tunde catheter was then advanced via the right femoral venous sheath sequentially to the RA, RV, PA and PCWP positions. Me asurements were obtained in all positions. O2 saturations were obtained in the pulmonary wedge positi on, pulmonary artery, right ventricle, low right atrium and high right atrium. An O2 saturation was t hen obtained from the right femoral artery. The catheter was removed from the patient. Injection of t he arterial sheath showed normal placement. The sheath was removed and sealed with an Angio-Seal prod uct. The venous sheath was removed and sealed with direct pressure. The patient was moved to [facility] area in stable condition. Findings. Coronaries. Left main. The left main was a normal-size vessel. It had no lesions. Left anterior descending. The left anterior descending was a moderate size vessel with normal distrib ution. It had no lesions. Left circumflex vessel. The left circumflex was a dominant moderate to moderately large vessel. It lima d no lesions. Right coronary artery. The right coronary was a moderately sized nondominant vessel. It had mild mid tapering of 10%. Left ventriculogram. The left ventricle showed normal left ventricular systolic function with no mitral regurgitation. Aortic root injection. The aortic root appeared normal without aortic insufficiency or enlargement. Hemodynamics. LV 116/16 Aortic root 112/70 Pulmonary artery 27/13/19, PCWP 15//12, RV 35/6/12, RA 12/9/9 02 saturations: PA 75.3%, RV 73.6%, RA low 73.1%, RA high 73.4%,PCW 90.7%, FA 92.8%. <Conclusion> Minimal coronary artery disease. Normal left ventricular systolic function. Normal aortic root. Normal right-sided pressures. Normal O2 saturations.
--- NOTE | 2016-08-14 14:55 | PDOC ---
PROGRESS NOTES Chief Complaint Chief Complaint acute hypoxic resp failure, 2. Chest pain, pleuritic, no PE 3. Type 2 diabetes mellitus 4. Head injury in 2011 5. Back pain 6. Falls 7. Cholecystectomy 8. ACL and rotator cuff repair. History of Present Illness History of Present Illness Patient in no distress. soem dyspnea, some pain Discussed plan with . right and left heart cath today was clear Vitals Vitals Vital Signs Date Time Temp Pulse Resp B/P Pulse Ox O2 Delivery O2 Flow Rate FiO2 08/14/16 13:15 98 14 114/68 98 Nasal Cannula 2.0 08/14/16 07:00 97.8 97.8 Physical Exam General: Alert, Oriented X3, Cooperative, No acute distress Heart: Regular rate, Normal S1, Normal S2, Other (tele: SR) Lungs: Clear Abdomen: Soft, No tenderness Extremities: No edema, Normal pulses Skin: No breakdown, No significant lesion Labs LABS Laboratory Tests Test 08/13/16 18:01 08/13/16 20:20 08/14/16 05:35 08/14/16 08:30 Glucose (Fingerstick) 98mg/dL (70-99) 240mg/dL (70-99) 135mg/dL (70-99) White Blood Count 6.6x10^3/uL (4.0-11.0) Red Blood Count 5.32x10^6/uL (4.30-5.70) Hemoglobin 14.9g/dL (13.0-17.5) Hematocrit 44.4% (39.0-53.0) Mean Corpuscular Volume 83fL (79-100) Mean Corpuscular Hemoglobin 28pg (25-35) Mean Corpuscular Hemoglobin Concent 34g/dL (31-37) Red Cell Distribution Width 14.2% (11.5-14.5) Platelet Count 190x10^3/uL (140-400) Neutrophils (%) (Auto) 59% (31-73) Lymphocytes (%) (Auto) 30% (24-48) Monocytes (%) (Auto) 9% (0-9) Eosinophils (%) (Auto) 3% (0-3) Basophils (%) (Auto) 1% (0-3) Neutrophils # (Auto) 3.9x10^3uL (1.8-7.7) Lymphocytes # (Auto) 2.0x10^3/uL (1.0-4.8) Monocytes # (Auto) 0.6x10^3/uL (0.0-1.1) Eosinophils # (Auto) 0.2x10^3/uL (0.0-0.7) Basophils # (Auto) 0.0x10^3/uL (0.0-0.2) Prothrombin Time 13.0SEC (11.7-14.0) Prothromb Time International Ratio 1.0 (0.8-1.1) Sodium Level 141mmol/L (136-145) Potassium Level 3.8mmol/L (3.5-5.1) Chloride Level 106mmol/L (98-107) Carbon Dioxide Level 30mmol/L (21-32) Anion Gap 5 (6-14) Blood Urea Nitrogen 19mg/dL (8-26) Creatinine 0.9mg/dL (0.7-1.3) Estimated GFR (Cockcroft-Gault) 89.7 Glucose Level 115mg/dL (70-99) Calcium Level 9.0mg/dL (8.5-10.1) Test 08/14/16 12:17 Glucose (Fingerstick) 119mg/dL (70-99) Review of Systems Review of Systems no n.v.d still chest pain, pleuritic Assessment and Plan Assessmemt and Plan Problems Medical Problems: (1) Chest pain at rest Status: Acute (2) Hypoxia Status: Acute (3) Tachycardia Status: Acute Problems: Comment Review of Relevant I have reviewed the following items ashwin (where applicable) has been applied. Labs Laboratory Tests Test 08/12/16 16:50 08/12/16 20:34 08/13/16 03:30 08/13/16 08:11 Glucose (Fingerstick) 123mg/dL (70-99) 167mg/dL (70-99) 173mg/dL (70-99) Prothrombin Time 12.8SEC (11.7-14.0) Prothromb Time International Ratio 1.0 (0.8-1.1) Test 08/13/16 12:49 08/13/16 18:01 08/13/16 20:20 08/14/16 05:35 Glucose (Fingerstick) 168mg/dL (70-99) 98mg/dL (70-99) 240mg/dL (70-99) White Blood Count 6.6x10^3/uL (4.0-11.0) Red Blood Count 5.32x10^6/uL (4.30-5.70) Hemoglobin 14.9g/dL (13.0-17.5) Hematocrit 44.4% (39.0-53.0) Mean Corpuscular Volume 83fL (79-100) Mean Corpuscular Hemoglobin 28pg (25-35) Mean Corpuscular Hemoglobin Concent 34g/dL (31-37) Red Cell Distribution Width 14.2% (11.5-14.5) Platelet Count 190x10^3/uL (140-400) Neutrophils (%) (Auto) 59% (31-73) Lymphocytes (%) (Auto) 30% (24-48) Monocytes (%) (Auto) 9% (0-9) Eosinophils (%) (Auto) 3% (0-3) Basophils (%) (Auto) 1% (0-3) Neutrophils # (Auto) 3.9x10^3uL (1.8-7.7) Lymphocytes # (Auto) 2.0x10^3/uL (1.0-4.8) Monocytes # (Auto) 0.6x10^3/uL (0.0-1.1) Eosinophils # (Auto) 0.2x10^3/uL (0.0-0.7) Basophils # (Auto) 0.0x10^3/uL (0.0-0.2) Prothrombin Time 13.0SEC (11.7-14.0) Prothromb Time International Ratio 1.0 (0.8-1.1) Sodium Level 141mmol/L (136-145) Potassium Level 3.8mmol/L (3.5-5.1) Chloride Level 106mmol/L (98-107) Carbon Dioxide Level 30mmol/L (21-32) Anion Gap 5 (6-14) Blood Urea Nitrogen 19mg/dL (8-26) Creatinine 0.9mg/dL (0.7-1.3) Estimated GFR (Cockcroft-Gault) 89.7 Glucose Level 115mg/dL (70-99) Calcium Level 9.0mg/dL (8.5-10.1) Test 08/14/16 08:30 08/14/16 12:17 Glucose (Fingerstick) 135mg/dL (70-99) 119mg/dL (70-99) Laboratory Tests Test 08/13/16 18:01 08/13/16 20:20 08/14/16 05:35 08/14/16 08:30 Glucose (Fingerstick) 98mg/dL (70-99) 240mg/dL (70-99) 135mg/dL (70-99) White Blood Count 6.6x10^3/uL (4.0-11.0) Red Blood Count 5.32x10^6/uL (4.30-5.70) Hemoglobin 14.9g/dL (13.0-17.5) Hematocrit 44.4% (39.0-53.0) Mean Corpuscular Volume 83fL (79-100) Mean Corpuscular Hemoglobin 28pg (25-35) Mean Corpuscular Hemoglobin Concent 34g/dL (31-37) Red Cell Distribution Width 14.2% (11.5-14.5) Platelet Count 190x10^3/uL (140-400) Neutrophils (%) (Auto) 59% (31-73) Lymphocytes (%) (Auto) 30% (24-48) Monocytes (%) (Auto) 9% (0-9) Eosinophils (%) (Auto) 3% (0-3) Basophils (%) (Auto) 1% (0-3) Neutrophils # (Auto) 3.9x10^3uL (1.8-7.7) Lymphocytes # (Auto) 2.0x10^3/uL (1.0-4.8) Monocytes # (Auto) 0.6x10^3/uL (0.0-1.1) Eosinophils # (Auto) 0.2x10^3/uL (0.0-0.7) Basophils # (Auto) 0.0x10^3/uL (0.0-0.2) Prothrombin Time 13.0SEC (11.7-14.0) Prothromb Time International Ratio 1.0 (0.8-1.1) Sodium Level 141mmol/L (136-145) Potassium Level 3.8mmol/L (3.5-5.1) Chloride Level 106mmol/L (98-107) Carbon Dioxide Level 30mmol/L (21-32) Anion Gap 5 (6-14) Blood Urea Nitrogen 19mg/dL (8-26) Creatinine 0.9mg/dL (0.7-1.3) Estimated GFR (Cockcroft-Gault) 89.7 Glucose Level 115mg/dL (70-99) Calcium Level 9.0mg/dL (8.5-10.1) Test 08/14/16 12:17 Glucose (Fingerstick) 119mg/dL (70-99) Medications Current Medications Nitroglycerin (Nitrostat) 0.4 mg PRN Q5MIN PRN SL CHEST PAIN Last administered on 08/13/16 09:50; Start 08/11/16 at 15:15 Aspirin (Ecotrin) 325 mg 1X ONCE PO Last administered on 08/11/16 15:26; Start 08/11/16 at 15:15; Stop 08/11/16 at 15:16; Status DC Morphine Sulfate 5 mg 1X ONCE IV Last administered on 08/11/16 15:35; Start 08/11/16 at 15:15; Stop 08/11/16 at 15:16; Status DC Ondansetron HCl (Zofran) 4 mg 1X ONCE IV Last administered on 08/11/16 15:17 ; Start 08/11/16 at 15:15; Stop 08/11/16 at 15:16; Status DC Aspirin (Amy Aspirin) 325 mg STK-MED ONCE .ROUTE ; Start 08/11/16 at 15:13; Stop 08/11/16 at 15:14; Status DC Enoxaparin Sodium (Lovenox 100mg Syringe) 95 mg 1X ONCE SQ Last administered on 08/11/16 15:35; Start 08/11/16 at 15:30; Stop 08/11/16 at 15:31; Status DC Albuterol/ Ipratropium 3 ml 3 ml 1X ONCE NEB Last administered on 08/11/16 15 :48; Start 08/11/16 at 15:30; Stop 08/11/16 at 15:32; Status DC Sodium Chloride (Iv Sodium Chloride 0.9% 1000ml Bag) 1,000 ml @ 0 mls/hr 1X ONCE IV ; Start 08/11/16 at 16:00; Stop 08/11/16 at 16:01; Status DC Insulin Human Regular (Novolin R Vial) 10 unit 1X ONCE IV Last administered on 08/11/16 16:22; Start 08/11/16 at 16:00; Stop 08/11/16 at 16:01; Status DC Ondansetron HCl (Zofran) 4 mg PRN Q8HRS PRN IV NAUSEA/VOMITING; Start 08/11/16 at 16:15; Stop 08/12/16 at 16:14; Status DC Fentanyl Citrate 50 mcg 50 mcg PRN Q2HR PRN IV PAIN Last administered on 22:48; Start 08/11/16 at 16:15; Stop 08/12/16 at 16:14; Status DC Sodium Chloride (Iv Sodium Chloride 0.9% 1000ml Bag) 1,000 ml @ 1,000 mls/hr 1X ONCE IV Last administered on 08/11/16 16:23; Start 08/11/16 at 16:15; Stop 08/11/16 at 17:14; Status DC Iohexol (Omnipaque 300 Mg/ml) 75 ml 1X ONCE IV Last administered on 08/11/16 16:56; Start 08/11/16 at 16:45; Stop 08/11/16 at 16:46; Status DC Enoxaparin Sodium (Lovenox 100mg Syringe) 100 mg Q12HR SQ Last administered on 08/12/16 08:48; Start 08/12/16 at 09:00; Stop 08/12/16 at 15:51; Status DC Enoxaparin Sodium (Lovenox 30mg Syringe) 10 mg 1X ONCE SQ Last administered on 08/11/16 18:34; Start 08/11/16 at 17:45; Stop 08/11/16 at 17:46; Status DC Acetaminophen (Tylenol) 325 mg PRN Q6HRS PRN PO MILD PAIN / TEMP Last administered on 08/14/16 09:10; Start 08/11/16 at 17:45 Acetaminophen/ Hydrocodone Bitart (Lortab 5/325) 1 tab PRN Q6HRS PRN PO MODERATE TO SEVERE PAIN Last administered on 08/13/16 09:44; Start 08/11/16 at 17:45 Hydralazine HCl (Apresoline) 10 mg PRN Q4HRS PRN IVP ELEVATED BP, SEE COMMENTS ; Start 08/11/16 at 17:45 Ondansetron HCl (Zofran) 4 mg PRN Q8HRS PRN IV NAUSEA/VOMITING Last administered on 08/13/16 09:44; Start 08/11/16 at 17:45 Albuterol Sulfate (Ventolin Neb Soln) 2.5 mg PRN Q4HRS PRN NEB SHORTNESS OF BREATH; Start 08/11/16 at 17:45 Insulin Aspart (Novolog) 0-9 UNITS TIDWMEALS SQ ; Start 08/12/16 at 08:00 Dextrose (Dextrose 50%-Water Syringe) 12.5 gm PRN Q15MIN PRN IV SEE COMMENTS; Start 08/11/16 at 17:45 Insulin Aspart (Novolog) 10 units 1X ONCE SQ Last administered on 08/11/16 18 :11; Start 08/11/16 at 18:15; Stop 08/11/16 at 18:16; Status DC Atorvastatin Calcium (Lipitor) 80 mg QHS PO Last administered on 08/13/16 20:22 ; Start 08/12/16 at 21:00 Non-Formulary Medication 100 mg DAILYAC PO Last administered on 08/14/16 09:10 ; Start 08/12/16 at 07:30 Escitalopram Oxalate (Lexapro) 20 mg DAILY PO Last administered on 08/14/16 09: 11; Start 08/12/16 at 09:00 Fenofibrate (Lofibra) 134 mg DAILY PO Last administered on 08/14/16 09:10; Start 08/12/16 at 09:00 Insulin Detemir (Levemir) 35 units QHS SQ ; Start 08/11/16 at 22:00; Status Cancel Non-Formulary Medication 1 ea QHS SQ Last administered on 08/13/16 20:24; Start 08/12/16 at 21:00 Non-Formulary Medication 1 ea HS SQ Last administered on 08/13/16 20:24; Start 08/11/16 at 22:00 Warfarin Sodium (Coumadin Per Pharmacy) 1 each PRN DAILY PRN MC SEE COMMENTS Last administered on 08/12/16 14:38; Start 08/11/16 at 22:30; Stop 08/12/16 at 15 :27; Status DC Warfarin Sodium (Coumadin) 7.5 mg 1X ONCE PO Last administered on 08/12/16 00: 25; Start 08/11/16 at 23:00; Stop 08/12/16 at 15:27; Status DC Iohexol (Omnipaque 300 Mg/ml) 75 ml 1X ONCE IV Last administered on 08/12/16 13:21; Start 08/12/16 at 12:15; Stop 08/12/16 at 12:16; Status DC Info (Anti-Coagulation Monitoring By Pharmacy) 1 each PRN DAILY PRN MC SEE COMMENTS Last administered on 08/12/16 14:40; Start 08/12/16 at 13:45; Stop at 07:33; Status DC Warfarin Sodium (Coumadin) 7.5 mg 1X WARF ONCE PO ; Start 08/12/16 at 16:00; Stop 08/12/16 at 16:01; Status Cancel Enoxaparin Sodium (Lovenox 40mg Syringe) 40 mg Q24H SQ Last administered on 08/13 09:46; Start 08/13/16 at 09:00 Regadenoson (Lexiscan) 0.4 mg 1X ONCE IV Last administered on 08/13/16 08:58; Start 08/13/16 at 08:15; Stop 08/13/16 at 08:16; Status DC Albuterol Sulfate (Ventolin Neb Soln) 2.5 mg RTQID NEB Last administered on 08/14 12:21; Start 08/13/16 at 13:45 Metoprolol Tartrate (Lopressor) 12.5 mg BID PO Last administered on 08/13/16 20 :23; Start 08/13/16 at 21:00 Lisinopril (Prinivil) 2.5 mg DAILY PO Last administered on 08/13/16 15:13; Start 08/13/16 at 14:00 Iohexol 100 ml 100 ml STK-MED ONCE .ROUTE ; Start 08/14/16 at 10:23; Stop at 10:24; Status DC Heparin Sodium/ Sodium Chloride 1,000 ml @ As Directed STK-MED ONCE .ROUTE ; Start 08/14/16 at 10:23; Stop 08/14/16 at 10:24; Status DC Lidocaine HCl 20 ml STK-MED ONCE .ROUTE ; Start 08/14/16 at 10:23; Stop 08/14/16 at 10:24; Status DC Heparin Sodium/ Sodium Chloride 1,000 unit 1X ONCE IART Last administered on 12:01; Start 08/14/16 at 11:30; Stop 08/14/16 at 11:31; Status DC Midazolam HCl (Versed) 5 mg 1X ONCE IV Last administered on 08/14/16 12:02; Start 08/14/16 at 11:30; Stop 08/14/16 at 11:31; Status DC Fentanyl Citrate (Fentanyl 2ml Vial) 100 mcg 1X ONCE IV Last administered on 12:03; Start 08/14/16 at 11:30; Stop 08/14/16 at 11:31; Status DC Iohexol (Omnipaque 350 Mg/ml) 100 ml 1X ONCE IART Last administered on 12:01; Start 08/14/16 at 11:30; Stop 08/14/16 at 11:31; Status DC Lidocaine HCl 20 ml 1X ONCE IJ Last administered on 08/14/16 12:02; Start 08/14 at 11:30; Stop 08/14/16 at 11:31; Status DC Active Scripts Active Hydrocodone-Apap 5-325 (Hydrocodone Bit/Acetaminophen) 1 Each Tablet 2 Tab PO PRN Q4-6HRS PRN Hydrocodone-Apap 5-325 (Hydrocodone Bit/Acetaminophen) 1 Each Tablet 2 Tab PO Q4-6HRS PRN Reported Lantus (Insulin Glargine,Hum.rec.anlog) 100 Unit/1 Ml Vial 35 Unit SQ HS Victoza 2-Jermaine (Liraglutide) 0.6 Mg/0.1 Ml Pen.injctr 1.8 Mg SQ Invokana (Canagliflozin) 100 Mg Tablet 100 Mg PO DAILYAC Atorvastatin Calcium 80 Mg Tablet 1 Tab PO DAILY Fenofibrate 160 Mg Tablet 1 Tab PO DAILY Escitalopram Oxalate 20 Mg Tablet 1 Tab PO DAILY Vitals/I & O Vital Sign - Last 24 Hours 5/208/13/16 08/13/16 08/13/16 15:00 15:13 16:05 19:57 Temp 98.0 98.5 98.0 98.5 Pulse 92 85 93 Resp 20 20 B/P 118/82 115/80 119/75 Pulse Ox 96 96 93 O2 Delivery Room Air Room Air Nasal Cannula O2 Flow Rate 2.0 08/13/16 08/13/16 08/13/16 08/13/16 20:00 20:04 20:23 23:59 Temp 98.2 98.2 Pulse 93 86 Resp 20 B/P 119/75 108/87 Pulse Ox 92 94 O2 Delivery Nasal Cannula Nasal Cannula Nasal Cannula O2 Flow Rate 2.0 2.0 2.0 08/14/16 08/14/16 08/14/16 08/14/16 03:55 07:00 07:37 08:00 Temp 98.7 97.8 98.7 97.8 Pulse 86 104 Resp 20 20 B/P 105/72 116/88 Pulse Ox 96 96 91 O2 Delivery Nasal Cannula Room Air Room Air Nasal Cannula O2 Flow Rate 2.0 2.0 08/14/16 08/14/16 08/14/16 08/14/16 11:57 12:03 12:15 12:22 Pulse 91 92 Resp 14 16 14 B/P 151/63 Pulse Ox 92 95 O2 Delivery Nasal Cannula Nasal Cannula Nasal Cannula Nasal Cannula O2 Flow Rate 4.0 4.0 2.0 2.0 08/14/16 08/14/16 08/14/16 08/14/16 12:30 12:45 13:00 13:15 Pulse 98 106 104 98 Resp 14 14 14 14 B/P 127/67 120/20 124/78 114/68 Pulse Ox 97 97 98 98 O2 Delivery Nasal Cannula Nasal Cannula Nasal Cannula Nasal Cannula O2 Flow Rate 2.0 2.0 2.0 2.0 Intake and Output 08/13/16 08/13/16 08/14/16 15:00 23:00 07:00 Intake Total 540 ml Output Total 600 ml 1400 ml Balance -60 ml -1400 ml PIERRE NOE MD August 14, 2016 14:55
[2016-08-14] MEDS ORDERED: KETOROLAC TROMETHAMINE 30 MG/ML INJ. IV ONE (15:00)
[2016-08-14] MEDS ORDERED: KETOROLAC 15 MG/ML VIAL. IV PRN (21:00)
[2016-08-14] MEDS: ATORVASTATIN CALCIUM 40 MG TABLET. PO SCH (21:14)
[2016-08-14] MEDS: LANTUS SQ SCH (21:14)
[2016-08-14] MEDS: VICTOZA SQ SCH (21:15)
[2016-08-15 02:26] VITALS: BP 110/88
[2016-08-15] MEDS: ALBUTEROL SULFATE 2.5 MG/3 ML NEBU. NEB SCH ×2 (07:35→12:30)
[2016-08-15 07:37] LABS: CALCIUM 9.4 mg/dL (8.5-10.1); CREATININE 0.9 mg/dL (0.7-1.3); GFR 89.7; POTASSIUM 3.5 mmol/L (3.5-5.1)
[2016-08-15 07:44] LABS: BASO % 1 % (0-3); EOS % 2 % (0-3); HEMATOCRIT 43.7 % (39.0-53.0); HEMOGLOBIN 14.5 g/dL (13.0-17.5); LYMPH # 1.6 x10^3/uL (1.0-4.8); LYMPH % 23 % (24-48); MEAN CORPUSCULAR HEMOGLOBIN 28 pg (25-35); MEAN CORPUSCULAR HGB CONC 33 g/dL (31-37); MEAN CORPUSCULAR VOLUME 84 fL (79-100); MONO % 8 % (0-9); NEUT % 67 % (31-73); PLATELET COUNT 195 x10^3/uL (140-400); RED BLOOD COUNT 5.21 x10^6/uL (4.30-5.70); RED CELL DISTRIBUTION WIDTH 14.3 % (11.5-14.5)
[2016-08-15 07:57] VITALS: BP 131/92
[2016-08-15] MEDS: INSULIN ASPART 300 UNITS/3 ML INSULN.PEN SQ SCH ×2 (08:00→12:00)
[2016-08-15 08:01] LABS: PROTHROMBIN TIME PATIENT 12.4 SEC (11.7-14.0)
[2016-08-15] MEDS: NON FORMULARY ITEM (Canagliflozin (Invokana) 100 MG) PO SCH (08:20)
[2016-08-15] MEDS: ESCITALOPRAM 10 MG TABLET. PO SCH (08:21)
[2016-08-15] MEDS: FENOFIBRATE,MICRONIZED 134 MG CAPSULE PO SCH (08:21)
[2016-08-15] MEDS: METOPROLOL TART IMMED RELEASE 25 MG TABLET. PO SCH (08:22)
[2016-08-15] MEDS: LISINOPRIL 2.5 MG TABLET PO SCH (09:00)
[2016-08-15] MEDS: ENOXAPARIN 40 MG/0.4 ML SYRINGE. SQ SCH (09:59)
--- NOTE | 2016-08-15 10:03 | PDOC ---
PULMONARY PROGRESS NOTES Subjective feels much better Vitals Vital Signs Date Time Temp Pulse Resp B/P (MAP) Pulse Ox O2 Delivery O2 Flow Rate FiO2 08/15/16 08:22 101 131/92 08/15/16 07:57 97.7 17 94 Room Air 97.7 08/14/16 15:55 2.0 General: Alert, No acute distress Lungs: Clear Cardiovascular: S1 Abdomen: Soft Neuro Exam: Alert Extremities: No Edema Labs Laboratory Tests Test 08/13/16 12:49 08/13/16 18:01 08/13/16 20:20 08/14/16 05:35 Glucose (Fingerstick) 168 mg/dL (70-99) 98 mg/dL (70-99) 240 mg/dL (70-99) White Blood Count 6.6 x10^3/uL (4.0-11.0) Red Blood Count 5.32 x10^6/uL (4.30-5.70) Hemoglobin 14.9 g/dL (13.0-17.5) Hematocrit 44.4 % (39.0-53.0) Mean Corpuscular Volume 83 fL (79-100) Mean Corpuscular Hemoglobin 28 pg (25-35) Mean Corpuscular Hemoglobin Concent 34 g/dL (31-37) Red Cell Distribution Width 14.2 % (11.5-14.5) Platelet Count 190 x10^3/uL (140-400) Neutrophils (%) (Auto) 59 % (31-73) Lymphocytes (%) (Auto) 30 % (24-48) Monocytes (%) (Auto) 9 % (0-9) Eosinophils (%) (Auto) 3 % (0-3) Basophils (%) (Auto) 1 % (0-3) Neutrophils # (Auto) 3.9 x10^3uL (1.8-7.7) Lymphocytes # (Auto) 2.0 x10^3/uL (1.0-4.8) Monocytes # (Auto) 0.6 x10^3/uL (0.0-1.1) Eosinophils # (Auto) 0.2 x10^3/uL (0.0-0.7) Basophils # (Auto) 0.0 x10^3/uL (0.0-0.2) Prothrombin Time 13.0 SEC (11.7-14.0) Prothromb Time International Ratio 1.0 (0.8-1.1) Sodium Level 141 mmol/L (136-145) Potassium Level 3.8 mmol/L (3.5-5.1) Chloride Level 106 mmol/L (98-107) Carbon Dioxide Level 30 mmol/L (21-32) Anion Gap 5 (6-14) Blood Urea Nitrogen 19 mg/dL (8-26) Creatinine 0.9 mg/dL (0.7-1.3) Estimated GFR (Cockcroft-Gault) 89.7 Glucose Level 115 mg/dL (70-99) Calcium Level 9.0 mg/dL (8.5-10.1) Test 08/14/16 08:30 08/14/16 12:17 08/14/16 16:51 08/14/16 20:43 Glucose (Fingerstick) 135 mg/dL (70-99) 119 mg/dL (70-99) 153 mg/dL (70-99) 166 mg/dL (70-99) Test 08/15/16 03:30 08/15/16 07:44 White Blood Count 7.0 x10^3/uL (4.0-11.0) Red Blood Count 5.21 x10^6/uL (4.30-5.70) Hemoglobin 14.5 g/dL (13.0-17.5) Hematocrit 43.7 % (39.0-53.0) Mean Corpuscular Volume 84 fL (79-100) Mean Corpuscular Hemoglobin 28 pg (25-35) Mean Corpuscular Hemoglobin Concent 33 g/dL (31-37) Red Cell Distribution Width 14.3 % (11.5-14.5) Platelet Count 195 x10^3/uL (140-400) Neutrophils (%) (Auto) 67 % (31-73) Lymphocytes (%) (Auto) 23 % (24-48) Monocytes (%) (Auto) 8 % (0-9) Eosinophils (%) (Auto) 2 % (0-3) Basophils (%) (Auto) 1 % (0-3) Neutrophils # (Auto) 4.7 x10^3uL (1.8-7.7) Lymphocytes # (Auto) 1.6 x10^3/uL (1.0-4.8) Monocytes # (Auto) 0.5 x10^3/uL (0.0-1.1) Eosinophils # (Auto) 0.1 x10^3/uL (0.0-0.7) Basophils # (Auto) 0.0 x10^3/uL (0.0-0.2) Prothrombin Time 12.4 SEC (11.7-14.0) Prothromb Time International Ratio 1.0 (0.8-1.1) Sodium Level 142 mmol/L (136-145) Potassium Level 3.5 mmol/L (3.5-5.1) Chloride Level 105 mmol/L (98-107) Carbon Dioxide Level 29 mmol/L (21-32) Anion Gap 8 (6-14) Blood Urea Nitrogen 16 mg/dL (8-26) Creatinine 0.9 mg/dL (0.7-1.3) Estimated GFR (Cockcroft-Gault) 89.7 Glucose Level 144 mg/dL (70-99) Calcium Level 9.4 mg/dL (8.5-10.1) Glucose (Fingerstick) 144 mg/dL (70-99) Laboratory Tests Test 08/14/16 12:17 08/14/16 16:51 08/14/16 20:43 08/15/16 03:30 Glucose (Fingerstick) 119 mg/dL (70-99) 153 mg/dL (70-99) 166 mg/dL (70-99) White Blood Count 7.0 x10^3/uL (4.0-11.0) Red Blood Count 5.21 x10^6/uL (4.30-5.70) Hemoglobin 14.5 g/dL (13.0-17.5) Hematocrit 43.7 % (39.0-53.0) Mean Corpuscular Volume 84 fL (79-100) Mean Corpuscular Hemoglobin 28 pg (25-35) Mean Corpuscular Hemoglobin Concent 33 g/dL (31-37) Red Cell Distribution Width 14.3 % (11.5-14.5) Platelet Count 195 x10^3/uL (140-400) Neutrophils (%) (Auto) 67 % (31-73) Lymphocytes (%) (Auto) 23 % (24-48) Monocytes (%) (Auto) 8 % (0-9) Eosinophils (%) (Auto) 2 % (0-3) Basophils (%) (Auto) 1 % (0-3) Neutrophils # (Auto) 4.7 x10^3uL (1.8-7.7) Lymphocytes # (Auto) 1.6 x10^3/uL (1.0-4.8) Monocytes # (Auto) 0.5 x10^3/uL (0.0-1.1) Eosinophils # (Auto) 0.1 x10^3/uL (0.0-0.7) Basophils # (Auto) 0.0 x10^3/uL (0.0-0.2) Prothrombin Time 12.4 SEC (11.7-14.0) Prothromb Time International Ratio 1.0 (0.8-1.1) Sodium Level 142 mmol/L (136-145) Potassium Level 3.5 mmol/L (3.5-5.1) Chloride Level 105 mmol/L (98-107) Carbon Dioxide Level 29 mmol/L (21-32) Anion Gap 8 (6-14) Blood Urea Nitrogen 16 mg/dL (8-26) Creatinine 0.9 mg/dL (0.7-1.3) Estimated GFR (Cockcroft-Gault) 89.7 Glucose Level 144 mg/dL (70-99) Calcium Level 9.4 mg/dL (8.5-10.1) Test 08/15/16 07:44 Glucose (Fingerstick) 144 mg/dL (70-99) Medications Active Scripts Medications Dose Route/Sig Days Date Category Lantus (Insulin Glargine,Hum.rec.anlog) 100 Unit/1 Ml Vial 35 Unit SQ HS 08/11/16 Reported Victoza 2-Jermaine (Liraglutide) 0.6 Mg/0.1 Ml Pen.injctr 1.8 Mg SQ 08/11/16 Reported Invokana (Canagliflozin) 100 Mg Tablet 100 Mg PO DAILYAC 08/11/16 Reported Atorvastatin Calcium 80 Mg Tablet 1 Tab PO DAILY 08/11/16 Reported Fenofibrate 160 Mg Tablet 1 Tab PO DAILY 08/11/16 Reported Escitalopram Oxalate 20 Mg Tablet 1 Tab PO DAILY 08/11/16 Reported Hydrocodone-Apap 5-325 (Hydrocodone Bit/Acetaminophen) 1 Each Tablet 2 Tab PO PRN Q4-6HRS PRN 02/22/16 Rx Hydrocodone-Apap 5-325 (Hydrocodone Bit/Acetaminophen) 1 Each Tablet 2 Tab PO Q4-6HRS PRN 12/01/15 Rx Impression . 1. Left-sided chest pain with radiation to the left shoulder. I was not convinced by looking at the initial CTA chest with reported clot in the tertiary branch of the right lower lobe and also in the right upper lobe. repeat CTA chest with no PE. 2. No significant history of tobacco use. 3. No evidence of DVT in the lower extremity Dopplers. 4. History of traumatic brain injury. Plan . 1. No need for AC pulmonary moore 2. Repeat CTA chest neg for PE 3. d/w cardiology. s/p right/left heart cath / no sig CAD, and no shunt 4. echocardiogram with no pulmonary HTN 5. Neg stress test 6. off oxygen 7. Discussed with the patient and his . Also, with Cardiology ok with home BRYCE ARIZA MD August 15, 2016 10:03
[2016-08-15 10:23] VITALS: BP 121/77
[2016-08-15] MEDS ORDERED: DOCUSATE SODIUM 100 MG CAPSULE. PO SCH (11:00)
[2016-08-15] MEDS ORDERED: DOCUSATE SODIUM 100 MG CAPSULE. PO PRN (11:00)
[2016-08-15] MEDS ORDERED: POLYETHYLENE GLYCOL 3350 17 GM PACKET. PO ONE (11:00)
[2016-08-15] MEDS ORDERED: FLUT1DIS IH (11:45)
[2016-08-15] MEDS ORDERED: PROAIR HFA8.5 GM INH (11:45)
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
[2016-08-15] MEDS ORDERED: LISI2.5T PO (12:12)
[2016-08-15] MEDS ORDERED: METO25TA4 PO (12:12)
[2016-08-16] MEDS ORDERED: POLYETHYLENE GLYCOL 3350 17 GM PACKET. PO SCH (09:00)
== END 2016-08-15 14:10 | disposition home or self-care (01) | DRG 286 ==
LOC: ER 14:47 → 2 NORTH 15:59
PROVIDERS: ADMIT Internal Medicine; ATTEND Internal Medicine
PROC: 4A023N8 Measurement of Cardiac Sampling and Pressure, Bilateral, Percutaneous Approach (ICD-10-PCS; principal; 2016-08-14)
PROC: B2151ZZ Fluoroscopy of Left Heart using Low Osmolar Contrast (ICD-10-PCS; 2016-08-14)
PROC: B2111ZZ Fluoroscopy of Multiple Coronary Arteries using Low Osmolar Contrast (ICD-10-PCS; 2016-08-14)
PROC: 3E073GC Introduction of Other Therapeutic Substance into Coronary Artery, Percutaneous Approach (ICD-10-PCS; 2016-08-14)
DX: I25.10 Atherosclerotic heart disease of native coronary artery without angina pectoris (principal); J96.01 Acute respiratory failure with hypoxia; E11.65 Type 2 diabetes mellitus with hyperglycemia; G89.29 Other chronic pain; M19.90 Unspecified osteoarthritis, unspecified site; R29.6 Repeated falls; E78.5 Hyperlipidemia, unspecified; I10 Essential (primary) hypertension; M54.9 Dorsalgia, unspecified; Z88.0 Allergy status to penicillin; Z87.828 Personal history of other (healed) physical injury and trauma; Z88.1 Allergy status to other antibiotic agents; Z90.49 Acquired absence of other specified parts of digestive tract; Z82.49 Family history of ischemic heart disease and other diseases of the circulatory system; Z87.442 Personal history of urinary calculi; Z87.820 Personal history of traumatic brain injury; Z88.8 Allergy status to other drugs, medicaments and biological substances
CPT/HCPCS: 36415; 71010; 71275; 78452; 80048; 80053; 80061; 81001; 82947; 83690; 83880; 84484; 85027; 85379; 85610; 85730; 93005; 93017; 93306; 93453; 93567; 93970; 94250; 94640; 94760; 96374; 96375; 96376; A9500; C1769; C1771; C1773; C1892; G0269; G0480; G0481; J1650; J1815; J2250; J2270; J2405; J2785; J3010; J7030; J7620; Q9967; 99285-25

== ENCOUNTER → 2016-08-20 | Outpatient (CLI) | payer BC ==
[2016-08-15 10:23] VITALS: BP 121/77
[~2016-08-20] MED LIST changes: +ATORVASTATIN CA80 MG PO; +CANA100T PO; +ESCI20TA PO; +FENO160T PO; +FLUT1DIS IH; +INSU100V8 SQ; +LIRA0.6P SQ; +LISI2.5T PO; +METO25TA4 PO; +PROAIR HFA8.5 GM INH
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
== END | disposition home or self-care (01) ==
LOC: KCIC MRI 15:22
PROVIDERS: ATTEND Neurological Surgery
DX: S32.008S Other fracture of unspecified lumbar vertebra, sequela (principal); M51.36 Other intervertebral disc degeneration, lumbar region; M43.06 Spondylolysis, lumbar region; X58.XXXS Exposure to other specified factors, sequela
CPT/HCPCS: 72146; 72148

== ENCOUNTER → 2016-10-07 | Outpatient (CLI) | payer BC ==
[~2016-10-07] MED LIST changes: -ESCI20TA PO; +ESCITALOPRAM OX20 MG PO; -HYDR-2666 PO; +HYDR-2758 PO
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
== END | disposition home or self-care (01) ==
LOC: KCIC CT 15:08
PROVIDERS: ATTEND Family Medicine
DX: S06.9X9A Unspecified intracranial injury with loss of consciousness of unspecified duration, initial encounter (principal); S19.9XXA Unspecified injury of neck, initial encounter; W19.XXXA Unspecified fall, initial encounter; Y93.89 Activity, other specified; Y92.89 Other specified places as the place of occurrence of the external cause; Y99.8 Other external cause status
CPT/HCPCS: 70450; 72125